=== PATIENT | male | born 1950 | race Caucasian/White ===

== ENCOUNTER 2023-11-20 14:28 | Inpatient (IN) | payer MEDICARE ==
[2023-11-20] MEDS ORDERED: Sodium Chloride 0.9% 1000 ML 1,000 ML ONE ×2 (14:56→18:46)
[2023-11-20] MEDS: Sodium Chloride 0.9% 1000 ML 1,000 ML IV STA ×2 (15:19→18:48)
[2023-11-20 15:40] LABS: Absolute Neutrophil Ct (ANC) 12.27 x10^3/uL (1.78-5.38); BASOPHIL % 0.1 % (0.2-1.2); Basophil (Absolute #) 0.02 x10^3/uL (0.01-0.08); Eosinophil (Absolute #) 0 x10^3/uL (0.04-0.54); Hematocrit 32.7 % (40.1-51.0); Hemoglobin 11.4 g/dL (13.7-17.5); IMMATURE GRAN # 0.08 x10^3u/L (0.001-0.031); IMMATURE GRAN % 0.6 % (0.001-0.429); Lymphocyte (Absolute #) 0.67 x10^3/uL (1.32-3.57); Mean Cell Volume 90.3 fL (79.0-92.2); Mean Corpuscular Hemoglobin 31.5 pg (25.7-32.2); Mean Corpuscular Hgb Concent. 34.9 g/dL (32.3-36.5); Mean Platelet Volume 9.2 fL (9.4-12.4); Monocyte (Absolute #) 0.49 x10^3/uL (0.30-0.82); Monocytes % 3.6 % (5.3-12.2); Neutrophil % 90.7 % (34.0-67.9); Platelet Count 157 x10^3/uL (163-337); Red Blood Count 3.62 x10^6/uL (4.63-6.08); Red Cell Distribution Width 13.2 % (11.6-14.4); White Blood Count 13.5 x10^3/uL (4.23-9.07)
[2023-11-20 15:53] LABS: ALBUMIN 3.7 g/dL (3.5-5.0); ANION GAP 17.3 MEQ/L (5-15); BILIRUBIN,TOTAL 0.6 mg/dL (0.2-1.3); Calcium 8.1 mg/dL (8.4-10.2); Creatinine 1 1.9 mg/dL (0.66-1.25); EST GLOMERULAR FILTRATION RATE 37.3 ML/MIN; Potassium 3.7 mmol/L (3.5-5.1); Total Protein 6.5 g/dL (6.3-8.2)
[2023-11-20 16:11] LABS: Group A Strep NOT DETECTED (NEGATIVE)
--- NOTE | 2023-11-20 16:13 | XRAY ---
[place] [facility] [place]. TECHNIQUE: CR Chest (1 view) AP view. FINDINGS: Cardiac shadow appears enlarged despite AP projection. Mild prominence of perihilar vascular markings probably due to mild pulmonary vascular congestion Sternotomy wire sutures and multiple surgical along the left side of the mediastinum. Trachea central. Cardiophrenic and costophrenic angles are acute. Retrocardiac and retrosternal air space is preserved. Degenerative changes are noted in the visualized thoracic spine and both glenohumeral joints. IMPRESSION: 1. Apparent cardiomegaly with mild pulmonary vascular congestion. Clinical correlation is suggested. 2. Sternotomy wire sutures and multiple surgical clips along the left side of the mediastinum. 3. No significant interval changes when compared with prior study. Electronically Signed by: Alessio Bush MD. (11/20/2023 16:09:29 EDT)
[2023-11-20 16:23] LABS: INFLUENZA A NEGATIVE (NEGATIVE); INFLUENZA B NEGATIVE (NEGATIVE); RESPIRATORY SYNCTIAL VIRUS NEGATIVE (NEGATIVE); SARS-CoV-2 Xpert Express NEGATIVE (NEGATIVE)
[2023-11-20] MEDS ORDERED: ROCEPHIN 2 GM/100 ML NACL 2 GM/100 ML IVPB IV ONE (16:57)
[2023-11-20] MEDS: ROCEPHIN 2 GM/100 ML NACL 2 GM/100 ML IVPB IV ONE (16:59)
--- NOTE | 2023-11-20 17:32 | ERPHSYRPT ---
- History of Present Illness Time Seen by Provider: 11/20/23 14:35 Source: patient, family Exam Limitations: no limitations Patient Subjective Stated Complaint: PT states "I was chilling last night and when I woke up I was dizzy and had a fever." Triage Nursing Assessment: PT presented alert and oriented X 3, skin pwd. Pt has hx of cerebral palsy. Pt resting comfortably on the bed. Physician History: 73-year-old with history of cerebral palsy, diabetes mellitus, hypertension, coronary artery disease status post CABG presented in the ER with complains of fever chills and dizziness. Patient reported he was having chills last night and this morning he woke up dizzy, lightheaded and had a fever of 104 prior to arrival, took Tylenol and currently afebrile. Patient reports generalized weakness fatigue and tiredness. Denies any chest pain palpitations or shortness of breath. No abdominal pain nausea or vomiting reported. Denies any headache, numbness tingling or focal weakness. Denies any known sick contact. Patient has chronic swelling of right lower extremity as compared to left from a previous femur fracture which is not any worse than usual. Has bilateral redness in the lower legs which is not any worse than usual as well. Patient is on room air around 96%. Allergies/Adverse Reactions: No Known Allergies Allergy (Mild, Verified 12/07/14 18:10) Home Medications: Atorvastatin Calcium 1 tab PO HS 11/20/23 [History] Buspirone HCl 15 mg PO TID 11/20/23 [History] Clopidogrel Bisulfate [Clopidogrel] 75 mg PO DAILY 11/20/23 [History] Cyanocobalamin (Vitamin B-12) [B-12] 1 tab PO DAILY 11/20/23 [History] Folic Acid 400 mcg PO DAILY 11/20/23 [History] Furosemide 40 mg [Lasix 40 MG] 40 mg PO DAILY 11/20/23 [History] Gabapentin [Neurontin ] 1 tab PO TID 11/20/23 [History] Glipizide 5 mg [Glucotrol 5 MG] 5 mg PO DAILY 11/20/23 [History] Isosorbide Mononitrate 30 mg [Imdur 30 MG] 1 tab PO DAILY 11/20/23 [History] Levothyroxine Sodium 50 Mcg [Synthroid 50 Mcg] 1 tab PO DAILY 11/20/23 [History] Metformin HCl [Metformin HCl ER] 750 mg PO BID 11/20/23 [History] Nitroglycerin 0.4 mg (Ed) [Nitrostat 0.4 MG (ED)] 1 tab SL Q5MIN PRN MR X 3 PRN 11/20/23 [History] Oxycodone HCl 5 mg Ir [Oxy-IR 5 MG] 5 mg PO Q4H PRN PRN 11/20/23 [History] PANTOPRAZOLE 40 mg Tablet [Protonix 40MG Tablet] 40 mg PO DAILY 11/20/23 [History] Phenytoin Sodium Extended 200 mg PO BID 11/20/23 [History] Potassium Chloride 1 tab PO BID 11/20/23 [History] Ramipril 1.25 mg [Altace 1.25 MG] 1 tab PO DAILY 11/20/23 [History] Tamsulosin HCl 0.4 mg [Flomax 0.4 MG] 0.4 mg PO DAILY 11/20/23 [History] calcitrioL [Calcitriol] 1 tab PO DAILY 11/20/23 [History] carvediloL [Carvedilol] 6.25 mg PO BID 11/20/23 [History] Hx Tetanus, Diphtheria Vaccination/Date Given: No Hx Influenza Vaccination/Date Given: Yes (2013) Hx Pneumococcal Vaccination/Date Given: Yes Immunizations Up to Date: No Travel Risk - International Travel Have you traveled outside of the country in past 3 weeks: No - Emerging Infectious Disease Are you exhibiting symptoms associated with any current EIDs: No - Review of Systems Constitutional: Fever, Chills, Fatigue, Weakness Eyes: No Symptoms Ears, Nose, & Throat: No Symptoms Respiratory: No Symptoms Cardiac: No Symptoms Abdominal/Gastrointestinal: No Symptoms Genitourinary Symptoms: No Symptoms Musculoskeletal: Arthralgias Skin: No Symptoms Neurological: Dizziness Psychological: No Symptoms Endocrine: No Symptoms Hematologic/Lymphatic: No Symptoms Immunological/Allergic: No Symptoms - Past Medical History Pertinent Past Medical History: Yes Neurological History: Peripheral Neuropathy, Seizures, Other Cardiac History: Myocardial Infarction ([place]) Respiratory History: No Pertinent History Endocrine Medical History: Diabetes Type II GI Medical History: GERD Other Medical History: CERBRAL PALSY - Past Surgical History Past Surgical History: Yes Cardiac: CABG, Cardiac Stent Gastrointestinal: Appendectomy Other Surgical History: SKIN GRAPHS - Social History Smoking Status: Never smoker Exposure to second hand smoke: Yes Drug Use: none Patient Lives Alone: No - Social Determinants of Health Will the patient participate in the screening: Declined to provide - Nursing Vital Signs Nursing Vital Signs: Initial Vital Signs Temperature 99.9 F 11/20/23 14:37 Pulse Rate 97 H 11/20/23 14:37 Respiratory Rate 18 11/20/23 14:37 Blood Pressure 128/70 11/20/23 14:37 O2 Sat by Pulse Oximetry 96 11/20/23 14:37 Pain Scale Pain Intensity 0 - Physical Exam General Appearance: no apparent distress, alert Eye Exam: PERRL/EOMI ENT Exam: normal ENT inspection Neck Exam: normal inspection, full range of motion Respiratory Exam: normal breath sounds, lungs clear Cardiovascular/Chest Exam: normal heart sounds, regular rate/rhythm Gastrointestinal/Abdominal Exam: soft, non tender, no distention, no mass Extremity Exam: non-tender Neurologic Exam: alert, oriented x 3, cooperative, executive administrator II-XII nml as tested, normal mood/affect, sensation nml Skin Exam: normal color SpO2 Interpretation: normal SpO2: 98 O2 Delivery: Room Air Procedures - Central Line Time Of Procedure: 19:34 Timeout: Performed Central Line Lumen: triple Lumen Size: 7 [place] Central Line Procedure: chlorahexadine prep Central Line Postion: femoral (R) Anesthesia: 1% Lidocaine cc's of anesthesia: 3 Ultrasound Guided Placement: Yes Complications: none Central Line Post Position: sutured, good blood return Progress: Patient tolerated procedure very well Ordered Tests: Active Orders 24 hr Category Date Time Status Bedrest ROUTINE Activity 11/20/23 19:58 Active Up With Assistance ROUTINE Activity 11/20/23 19:58 Active Call Admit Doctor for Orders ON ADMISSION Care 11/20/23 19:58 Active Code Status Order ROUTINE Care 11/20/23 19:58 Active Fall Protocol Q1H Care 11/20/23 19:58 Active POCT Glucose Check ACHS Care 11/20/23 19:[address] in Observation ROUTINE Care 11/20/23 19:58 Active Telemetry q6h Care 11/20/23 19:58 Active Consistent Carbohydrate Diet 1800 Calorie Diet 11/21/23 Breakfast Active CHEST 1 VIEW (PORTABLE) Stat Exams 11/20/23 15:09 Completed BLOOD CULTURE Stat Lab 11/20/23 15:24 Received BNPII [NT PRO BNPII] Stat Lab 11/20/23 Completed CBC W DIFF Stat Lab 11/20/23 15:34 Completed CMP Stat Lab 11/20/23 15:34 Completed Lactic Acid Stat Lab 11/20/23 14:53 Completed PROCALCITONIN Stat Lab 11/20/23 15:34 Completed UA W/RFX UR CULTURE Stat Lab 11/20/23 16:43 Completed Pulse Oximetry .spot check RT 11/20/23 19:58 Active Transfer Order Routine Transfer 11/20/23 Completed Medication Summary Generic Name Dose Route Start Last Admin Trade Name Freq PRN Reason Stop Dose Admin Acetaminophen 325 mg 11/20/23 23:10 Acetaminophen 325 Mg Tablet PO 12/20/23 23:09 Q4H PRN PRN PAIN, FEVER, HEADACHE Buspirone HCl 15 mg 11/21/23 10:00 Buspirone Hcl 5 Mg Tablet PO 12/21/23 09:59 TID RAYSHAWN Clopidogrel Bisulfate 75 mg 11/21/23 10:00 Clopidogrel Bisulfate 75 Mg Tablet PO 12/21/23 09:59 DAILY RAYSHAWN Docusate Sodium 100 mg 11/20/23 23:10 Docusate Sodium 100 Mg Capsule PO 12/20/23 23:09 BIDPRN PRN CONSTIPATION Enoxaparin Sodium 40 mg 11/21/23 10:00 Enoxaparin Sodium 40 Mg/0.4 Ml Syringe SQ 12/21/23 09:59 DAILY RAYSHAWN Gabapentin mg 11/21/23 10:00 Gabapentin 300 Mg Capsule PO 12/21/23 09:59 TID RAYSHAWN Glipizide 5 mg 11/21/23 10:00 Glipizide 5 Mg Tablet PO 12/21/23 09:59 DAILY RAYSHAWN Doxycycline Hyclate 100 mg/ 100 mls @ 100 mls/hr 11/20/23 22:00 11/20/23 17:40 Dextrose IV 12/20/23 21:59 100 mls/hr Q12HT RAYSHAWN Administration Sodium Chloride 1,000 mls @ 50 mls/hr 11/20/23 23:15 Sodium Chloride 0.9% 1000 Ml IV 12/20/23 23:14 .Q20H RAYSHAWN Ceftriaxone Sodium 1 gm in 100 mls @ 200 mls/hr 11/21/23 10:00 Rocephin 1 Gm / 100 Ml Nacl IV 12/21/23 09:59 Q24H10 RAYSHAWN Insulin Human Lispro 0 unit 11/20/23 23:10 Insulin Lispro 1 Unit SQ 12/20/23 23:09 UD PRN HYPERGLYCEMIA Levothyroxine Sodium mcg 11/21/23 10:00 Levothyroxine Sodium 50 Mcg Tablet PO 12/21/23 09:59 DAILY RAYSHAWN Non-Formulary Medication 1 tab 11/21/23 22:00 Atorvastatin Calcium [Atorvastatin Calcium] PO 12/21/23 21:59 HS RAYSHAWN Non-Formulary Medication 1 tab 11/21/23 10:00 Cyanocobalamin (Vitamin B-12) [B-12] PO 12/21/23 09:59 DAILY RAYSHAWN Non-Formulary Medication 1 tab 11/21/23 10:00 Calcitriol [Calcitriol] PO 12/21/23 09:59 DAILY RAYSHAWN Non-Formulary Medication 400 mcg 11/21/23 10:00 Folic Acid [Folic Acid] PO 12/21/23 09:59 DAILY RAYSHAWN Pantoprazole Sodium 40 mg 11/21/23 10:00 Protonix (Pantoprazole) 40 Mg Tablet PO 12/21/23 09:59 DAILY RAYSHAWN Phenytoin Sodium 300 mg 11/21/23 22:00 Phenytoin Sodium Extended 100 Mg Capsule PO 12/21/23 21:59 HS RAYSHAWN Discontinued Medications Generic Name Dose Route Start Last Admin Trade Name Freq PRN Reason Stop Dose Admin Doxycycline Hyclate Confirm 11/20/23 17:38 Doxycycline Hyclate 100 Mg/Vial Injection Administered 11/20/23 17:39 Dose 100 mg IV .STK-MED ONE Sodium Chloride 1,000 mls @ 999 mls/hr 11/20/23 14:53 11/20/23 16:23 Sodium Chloride 0.9% 1000 Ml IV 11/20/23 15:53 Infused .Q1H1M STA Infusion Sodium Chloride Confirm 11/20/23 14:56 Sodium Chloride 0.9% 1000 Ml Administered 11/20/23 14:57 Dose 1,000 mls @ ud .ROUTE .STK-MED ONE Ceftriaxone Sodium 2 gm in 100 mls @ 200 mls/hr 11/20/23 16:28 11/20/23 18:11 Rocephin 2 Gm/100 Ml Nacl IV 11/20/23 16:57 Infused STAT ONE Infusion Ceftriaxone Sodium Confirm 11/20/23 16:57 Rocephin 2 Gm/100 Ml Nacl Administered 11/20/23 16:58 Dose 2 gm in 100 mls @ ud IV .STK-MED ONE Dextrose Confirm 11/20/23 17:40 Dextrose 5%/Water Iv Soln. 100ml Plus Bag Administered 11/20/23 17:41 Dose 100 mls @ ud IV .STK-MED ONE Sodium Chloride Confirm 11/20/23 18:46 Sodium Chloride 0.9% 1000 Ml Administered 11/20/23 18:47 Dose 1,000 mls @ ud .ROUTE .STK-MED ONE Sodium Chloride 1,000 mls @ 999 mls/hr 11/20/23 18:47 11/20/23 20:07 Sodium Chloride 0.9% 1000 Ml IV 11/20/23 19:47 Infused .Q1H1M STA Infusion Lab/Rad Data: Laboratory Result Diagrams 11/20/23 15:34 11/20/23 15:34 Laboratory Results 11/20/23 11/20/23 11/20/23 Range/Units 16:43 15:34 15:34 WBC (4.23-9.07) x10^3/uL RBC (4.63-6.08) x10^6/uL Hgb (13.7-17.5) g/dL Hct (40.1-51.0) % MCV (79.0-92.2) fL MCH (25.7-32.2) pg MCHC (32.3-36.5) g/dL RDW (11.6-14.4) % Plt Count (163-337) x10^3/uL MPV (9.4-12.4) fL Gran % (34.0-67.9) % Immature Gran % (Auto) (0.001-0.429) % Nucleat RBC Rel Count (0.00-0.2) % Eos # (Auto) (0.04-0.54) x10^3/uL Immature Gran # (Auto) (0.001-0.031) x10^3u/L Absolute Lymphs (auto) (1.32-3.57) x10^3/uL Absolute Monos (auto) (0.30-0.82) x10^3/uL Absolute Nucleated RBC (0.00-0.012) x10^3u/L Lymphocytes % (21.8-53.1) % Monocytes % (5.3-12.2) % Eosinophils % (0.8-7.0) % Basophils % (0.2-1.2) % Absolute Granulocytes (1.78-5.38) x10^3/uL Basophils # (0.01-0.08) x10^3/uL Sodium 137 (135-145) mmol/L Potassium 3.7 (3.5-5.1) mmol/L Chloride 102 (98-107) mmol/L Carbon Dioxide 22 (22-30) mmol/L Anion Gap 17.3 H (5-15) MEQ/L BUN 29 H (9-20) mg/dL Creatinine 1.90 H (0.66-1.25) mg/dL Estimated GFR 37.3 ML/MIN Glucose 157 H (74-106) mg/dL Lactic Acid (0.4-2.0) Calcium 8.1 L (8.4-10.2) mg/dL Total Bilirubin 0.60 (0.2-1.3) mg/dL AST 38 (17-59) U/L ALT 40 (0-50) U/L Alkaline Phosphatase 122 (38-126) U/L Serum Total Protein 6.5 (6.3-8.2) g/dL Albumin 3.7 (3.5-5.0) g/dL Procalcitonin 21.800 H* (0.030-0.080) ng/mL Urine Color Dark Yellow (Yellow) Urine Appearance Clear (Clear) Urine pH 5.0 (4.6-8.0) Ur Specific [place] 1.020 (1.005-1.030) Urine Protein 30 (Negative) Urine Glucose (UA) Negative (Negative) mg/dL Urine Ketones Trace A (Negative) Urine Blood Negative (Negative) Urine Nitrite Negative (Negative) Urine Bilirubin Negative (Negative) Urine Urobilinogen 1.0 A (0.2) mg/dL Ur Leukocyte Esterase Negative (Negative) Urine Microscopic RBC 0-2 (0-5) /HPF Urine Microscopic WBC 0-2 (0-5) /HPF Ur Epithelial Cells Rare (None Seen) /HPF Urine Bacteria None Seen (None Seen) /HPF Urine Culture Reflexed NO (NO) Influenza Type A Ag (NEGATIVE) Influenza Type B Ag (NEGATIVE) RSV (PCR) (NEGATIVE) SARS-CoV-2 (PCR) (NEGATIVE) Group A Strep Antibody (NEGATIVE) 11/20/23 11/20/23 11/20/23 Range/Units 15:34 15:20 14:53 WBC 13.5 H (4.23-9.07) x10^3/uL RBC 3.62 L (4.63-6.08) x10^6/uL Hgb 11.4 L (13.7-17.5) g/dL Hct 32.7 L (40.1-51.0) % MCV 90.3 (79.0-92.2) fL MCH 31.5 (25.7-32.2) pg MCHC 34.9 (32.3-36.5) g/dL RDW 13.2 (11.6-14.4) % Plt Count 157 L (163-337) x10^3/uL MPV 9.2 L (9.4-12.4) fL Gran % 90.7 H (34.0-67.9) % Immature Gran % (Auto) 0.6 H (0.001-0.429) % Nucleat RBC Rel Count 0.0 (0.00-0.2) % Eos # (Auto) 0 L (0.04-0.54) x10^3/uL Immature Gran # (Auto) 0.08 H (0.001-0.031) x10^3u/L Absolute Lymphs (auto) 0.67 L (1.32-3.57) x10^3/uL Absolute Monos (auto) 0.49 (0.30-0.82) x10^3/uL Absolute Nucleated RBC 0.00 (0.00-0.012) x10^3u/L Lymphocytes % 5.0 L (21.8-53.1) % Monocytes % 3.6 L (5.3-12.2) % Eosinophils % 0.0 L (0.8-7.0) % Basophils % 0.1 L (0.2-1.2) % Absolute Granulocytes 12.27 H (1.78-5.38) x10^3/uL Basophils # 0.02 (0.01-0.08) x10^3/uL Sodium (135-145) mmol/L Potassium (3.5-5.1) mmol/L Chloride (98-107) mmol/L Carbon Dioxide (22-30) mmol/L Anion Gap (5-15) MEQ/L BUN (9-20) mg/dL Creatinine (0.66-1.25) mg/dL Estimated GFR ML/MIN Glucose (74-106) mg/dL Lactic Acid 4.2 H (0.4-2.0) Calcium (8.4-10.2) mg/dL Total Bilirubin (0.2-1.3) mg/dL AST (17-59) U/L ALT (0-50) U/L Alkaline Phosphatase (38-126) U/L Serum Total Protein (6.3-8.2) g/dL Albumin (3.5-5.0) g/dL Procalcitonin (0.030-0.080) ng/mL Urine Color (Yellow) Urine Appearance (Clear) Urine pH (4.6-8.0) Ur Specific [place] (1.005-1.030) Urine Protein (Negative) Urine Glucose (UA) (Negative) mg/dL Urine Ketones (Negative) Urine Blood (Negative) Urine Nitrite (Negative) Urine Bilirubin (Negative) Urine Urobilinogen (0.2) mg/dL Ur Leukocyte Esterase (Negative) Urine Microscopic RBC (0-5) /HPF Urine Microscopic WBC (0-5) /HPF Ur Epithelial Cells (None Seen) /HPF Urine Bacteria (None Seen) /HPF Urine Culture Reflexed (NO) Influenza Type A Ag NEGATIVE (NEGATIVE) Influenza Type B Ag NEGATIVE (NEGATIVE) RSV (PCR) NEGATIVE (NEGATIVE) SARS-CoV-2 (PCR) NEGATIVE (NEGATIVE) Group A Strep Antibody NOT DETECTED (NEGATIVE) - Progress Progress: improved Progress Note: 11/20/23 19:31 73-year-old with multiple medical problems including cerebral palsy with left side contracture/wasting in upper extremity, hypertension, diabetes mellitus, coronary artery disease with CABG, chronic lower extremity swelling more on the right than the left with some redness is evaluated for sudden onset fever and chills. Patient had a fever of 104 prior to arrival which improved after 1 dose of Tylenol. Patient is not tachypneic or tachycardic. Lungs fairly clear to auscultation. He is given fluids per sepsis protocol as patient has a lactate of 4.2 and procalcitonin of 21. Patient has history of CHF, his blood pressure is improved and we will hold off on fluid as it will throw into CHF as chest x- ray did show some finding consistent with mild pulmonary edema. Patient workup showed white count of 13, acute renal failure with a baseline creatinine of 1 and today is 1.9. No UTI. Blood cultures are pending. No obvious focus of infection. Patient is given a dose of Rocephin and Doxy. Patient is a hard stick, central line is placed. Current blood pressure [address] Steiner, reviewed history, workup and agreed with admission. Discussed with Dr.: Other (: Jatin) Will see patient in: hospital (observation) Counseled pt/family regarding: lab results, diagnosis, need for follow-up, rad results Medical Desision Making - Independent Historian Additional History obtained from: Family - Discussion of managment Care discussed with:: hospitalist Reviewed:: Test results Agreed on:: Treatment plan, place in obs Will see patient: in hospital - Diagnostic Testing Diagnostic test were ordered, analyzed, and reviewed by me: Yes Radiological Interpretation: Interpreted by me, Reviewed by me, Teleradiologist Report - Risk of complications The pt has a mod risk of morbidity or mortality based on: Need for prescription drug management The pt has a high risk of morbidity or mortality based on: Decision regarding hospitilization or escalation of hosp level of care - Departure Departure Disposition: Observation Clinical Impression: Sepsis, Febrile illness, acute Condition: Stable Critical Care Time: No
[2023-11-20] MEDS ORDERED: VIBRAMYCIN 100 MG IV ONE (17:38)
[2023-11-20] MEDS: VIBRAMYCIN 100 MG*** 100 MG in Dextrose 5%/Water IV Soln. 100ML PLUS BAG 100 ML IV SCH (17:40)
[2023-11-20] MEDS ORDERED: Dextrose 5%/Water IV Soln. 100ML PLUS BAG 100 ML IV ONE (17:40)
[2023-11-20 17:41] LABS: Appearance Clear (Clear); Bacteria None Seen /HPF (None Seen); Bilirubin Negative (Negative); Blood Negative (Negative); Epithelial Cells Rare /HPF (None Seen); Glucose, Urine Negative (Negative); Ketones Trace (Negative); Leukocyte Esterase Negative (Negative); Nitrite Negative (Negative); Protein,Urine Dip 30 (Negative); RBC 0-2 /HPF (0-5); WBC 0-2 /HPF (0-5)
[2023-11-20 17:50] LABS: ADD URINE CULTURE? NO (NO)
--- NOTE | 2023-11-20 23:06 | PCM.HP ---
History of Present Illness - Chief Complaint Chief Complaint: Sepsis, febrile illness Date: 11/20/23 History of Present Illness: Mr. PITTMAN is a 73 year old male with a past medical history significant for cerebral palsy, hypertension, and seizures who presents to the hospital with complaints of mild fever and chills. Upon arrival, he was found to have an elevated WBC with left shift. He does report some dizziness and lightheadness especially with movement. No chest pain or shortness of breath. No nausea, vomiting or diarrhea. No dysuria, hematuria or foamy urine. Initial labs were also notable for a creatinine of 1.9, which is above his baseline. No NSAIDs or exposure to contrast studies. - Review of Systems Constitutional: Fever, Chills Eyes: No Vision Changes Ears, Nose, & Throat: No Epistaxis Respiratory: No Orthopnea, No Short Of Breath Cardiac: No Chest Pain, No Edema Abdominal/Gastrointestinal: No Abdominal Pain, No Nausea, No Vomiting, No Diarrhea Genitourinary Symptoms: No Dysuria, No Frequency, No Hematuria Musculoskeletal: No Arthralgias, No Back Pain, No Neck Pain Skin: No Cellulitis, No Rash Neurological: Dizziness Psychological: No Suicidal Ideations Endocrine: No Polyuria, No Polydipsia, No Hair Changes Medications & Allergies Home Medications: Home Medication List Atorvastatin Calcium 1 tab PO HS 11/20/23 [History Confirmed 11/20/23] Buspirone HCl 15 mg PO TID 11/20/23 [History Confirmed 11/20/23] Clopidogrel Bisulfate [Clopidogrel] 75 mg PO DAILY 11/20/23 [History Confirmed 11/20/23] Cyanocobalamin (Vitamin B-12) [B-12] 1 tab PO DAILY 11/20/23 [History Confirmed 11/20/23] Folic Acid 400 mcg PO DAILY 11/20/23 [History Confirmed 11/20/23] Furosemide 40 mg [Lasix 40 MG] 40 mg PO DAILY 11/20/23 [History Confirmed 11/20/23] Gabapentin [Neurontin ] 1 tab PO TID 11/20/23 [History Confirmed 11/20/23] Glipizide 5 mg [Glucotrol 5 MG] 5 mg PO DAILY 11/20/23 [History Confirmed 11/20/23] Isosorbide Mononitrate 30 mg [Imdur 30 MG] 1 tab PO DAILY 11/20/23 [History Confirmed 11/20/23] Levothyroxine Sodium 50 Mcg [Synthroid 50 Mcg] 1 tab PO DAILY 11/20/23 [History Confirmed 11/20/23] Metformin HCl [Metformin HCl ER] 750 mg PO BID 11/20/23 [History Confirmed 11/20/23] Nitroglycerin 0.4 mg (Ed) [Nitrostat 0.4 MG (ED)] 1 tab SL Q5MIN PRN MR X 3 PRN 11/20/23 [History Confirmed 11/20/23] Oxycodone HCl 5 mg Ir [Oxy-IR 5 MG] 5 mg PO Q4H PRN PRN 11/20/23 [History Confirmed 11/20/23] PANTOPRAZOLE 40 mg Tablet [Protonix 40MG Tablet] 40 mg PO DAILY 11/20/23 [History Confirmed 11/20/23] Phenytoin Sodium Extended 200 mg PO BID 11/20/23 [History Confirmed 11/20/23] Potassium Chloride 1 tab PO BID 11/20/23 [History Confirmed 11/20/23] Ramipril 1.25 mg [Altace 1.25 MG] 1 tab PO DAILY 11/20/23 [History Confirmed 11/20/23] Tamsulosin HCl 0.4 mg [Flomax 0.4 MG] 0.4 mg PO DAILY 11/20/23 [History Confirmed 11/20/23] calcitrioL [Calcitriol] 1 tab PO DAILY 11/20/23 [History Confirmed 11/20/23] carvediloL [Carvedilol] 6.25 mg PO BID 11/20/23 [History Confirmed 11/20/23] Allergies/Adverse Reactions: Allergies Allergy/AdvReac Type Severity Reaction Status Date / Time No Known Allergies Allergy Mild Verified 12/07/14 18:10 - Past Medical History Past Medical History: Yes Neurological History: Peripheral Neuropathy, Seizures, Other ENT History: Glaucoma Cardiac History: Myocardial Infarction ([place]) Respiratory History: No Pertinent History Endocrine Medical History: Diabetes Type II Musculoskelatal History: Arthritis GI Medical History: GERD History: No Pertinent History Pyscho-Social History: No Pertinent History Male Reproductive Disorders: No Pertinent History Comment: CERBRAL PALSY - Past Surgical History Past Surgical History: Yes Neuro Surgical History: No Pertinent History Cardiac History: CABG, Cardiac Stent Respiratory Surgery: No Pertinent History GI Surgical History: Appendectomy Genitourinary Surgical Hx: No Pertinent History Musculskeletal Surgical Hx: No Pertinent History Male Surgical History: No Pertinent History Other Surgical History: SKIN GRAPHS - Social History Smoking Status: Never smoker Exposure to second hand smoke: No Alcohol: None Drug Use: none - Social Determinants of Health Will the patient participate in the screening: Declined to provide - Physical Exam Vital Signs: Vital Signs - 24 hr Temp Pulse Resp BP BP Pulse Ox 11/20/23 22:23 97 11/20/23 20:51 99.1 F 77 19 96/48 95 11/20/23 19:58 95 11/20/23 19:36 98 11/20/23 19:30 91 H 29 H 110/44 93 L 11/20/23 18:30 84/41 95 11/20/23 18:00 85 88/41 98 11/20/23 17:30 92/45 99 11/20/23 17:00 91/45 98 11/20/23 16:30 96/55 99 11/20/23 16:01 81/46 98 11/20/23 16:00 97 11/20/23 15:50 97 11/20/23 15:40 96 11/20/23 15:30 97 11/20/23 15:20 96 11/20/23 15:19 95 11/20/23 14:38 128/70 11/20/23 14:37 99.9 F 97 H 18 128/70 96 General Appearance: no apparent distress Neurologic Exam: alert, oriented x 3 Ears, Nose, Throat Exam: dry mucous membranes Neck Exam: supple Respiratory Exam: No respiratory distress Cardiovascular Exam: regular rate/rhythm Gastrointestinal/Abdomen Exam: soft Extremity Exam: pedal edema Skin Exam: normal color, No rash Results - Labs Lab/Micro Results: Lab Results-Last 24 Hours 11/20/23 11/20/23 11/20/23 Range/Units 14:53 15:20 15:34 WBC 13.5 H (4.23-9.07) x10^3/uL RBC 3.62 L (4.63-6.08) x10^6/uL Hgb 11.4 L (13.7-17.5) g/dL Hct 32.7 L (40.1-51.0) % MCV 90.3 (79.0-92.2) fL MCH 31.5 (25.7-32.2) pg MCHC 34.9 (32.3-36.5) g/dL RDW 13.2 (11.6-14.4) % Plt Count 157 L (163-337) x10^3/uL MPV 9.2 L (9.4-12.4) fL Gran % 90.7 H (34.0-67.9) % Immature Gran % (Auto) 0.6 H (0.001-0.429) % Nucleat RBC Rel Count 0.0 (0.00-0.2) % Eos # (Auto) 0 L (0.04-0.54) x10^3/uL Immature Gran # (Auto) 0.08 H (0.001-0.031) x10^3u/L Absolute Lymphs (auto) 0.67 L (1.32-3.57) x10^3/uL Absolute Monos (auto) 0.49 (0.30-0.82) x10^3/uL Absolute Nucleated RBC 0.00 (0.00-0.012) x10^3u/L Lymphocytes % 5.0 L (21.8-53.1) % Monocytes % 3.6 L (5.3-12.2) % Eosinophils % 0.0 L (0.8-7.0) % Basophils % 0.1 L (0.2-1.2) % Absolute Granulocytes 12.27 H (1.78-5.38) x10^3/uL Basophils # 0.02 (0.01-0.08) x10^3/uL Sodium (135-145) mmol/L Potassium (3.5-5.1) mmol/L Chloride (98-107) mmol/L Carbon Dioxide (22-30) mmol/L Anion Gap (5-15) MEQ/L BUN (9-20) mg/dL Creatinine (0.66-1.25) mg/dL Estimated GFR ML/MIN Glucose (74-106) mg/dL POC Glucometer (74 to 106) mg/dL Lactic Acid 4.2 H (0.4-2.0) Calcium (8.4-10.2) mg/dL Total Bilirubin (0.2-1.3) mg/dL AST (17-59) U/L ALT (0-50) U/L Alkaline Phosphatase (38-126) U/L NT-Pro-B Natriuret Pep (<300) pg/mL Serum Total Protein (6.3-8.2) g/dL Albumin (3.5-5.0) g/dL Procalcitonin (0.030-0.080) ng/mL Urine Color (Yellow) Urine Appearance (Clear) Urine pH (4.6-8.0) Ur Specific [place] (1.005-1.030) Urine Protein (Negative) Urine Glucose (UA) (Negative) mg/dL Urine Ketones (Negative) Urine Blood (Negative) Urine Nitrite (Negative) Urine Bilirubin (Negative) Urine Urobilinogen (0.2) mg/dL Ur Leukocyte Esterase (Negative) Urine Microscopic RBC (0-5) /HPF Urine Microscopic WBC (0-5) /HPF Ur Epithelial Cells (None Seen) /HPF Urine Bacteria (None Seen) /HPF Urine Culture Reflexed (NO) Influenza Type A Ag NEGATIVE (NEGATIVE) Influenza Type B Ag NEGATIVE (NEGATIVE) RSV (PCR) NEGATIVE (NEGATIVE) SARS-CoV-2 (PCR) NEGATIVE (NEGATIVE) Group A Strep Antibody NOT DETECTED (NEGATIVE) 11/20/23 11/20/23 11/20/23 Range/Units 15:34 15:34 16:43 WBC (4.23-9.07) x10^3/uL RBC (4.63-6.08) x10^6/uL Hgb (13.7-17.5) g/dL Hct (40.1-51.0) % MCV (79.0-92.2) fL MCH (25.7-32.2) pg MCHC (32.3-36.5) g/dL RDW (11.6-14.4) % Plt Count (163-337) x10^3/uL MPV (9.4-12.4) fL Gran % (34.0-67.9) % Immature Gran % (Auto) (0.001-0.429) % Nucleat RBC Rel Count (0.00-0.2) % Eos # (Auto) (0.04-0.54) x10^3/uL Immature Gran # (Auto) (0.001-0.031) x10^3u/L Absolute Lymphs (auto) (1.32-3.57) x10^3/uL Absolute Monos (auto) (0.30-0.82) x10^3/uL Absolute Nucleated RBC (0.00-0.012) x10^3u/L Lymphocytes % (21.8-53.1) % Monocytes % (5.3-12.2) % Eosinophils % (0.8-7.0) % Basophils % (0.2-1.2) % Absolute Granulocytes (1.78-5.38) x10^3/uL Basophils # (0.01-0.08) x10^3/uL Sodium 137 (135-145) mmol/L Potassium 3.7 (3.5-5.1) mmol/L Chloride 102 (98-107) mmol/L Carbon Dioxide 22 (22-30) mmol/L Anion Gap 17.3 H (5-15) MEQ/L BUN 29 H (9-20) mg/dL Creatinine 1.90 H (0.66-1.25) mg/dL Estimated GFR 37.3 ML/MIN Glucose 157 H (74-106) mg/dL POC Glucometer (74 to 106) mg/dL Lactic Acid (0.4-2.0) Calcium 8.1 L (8.4-10.2) mg/dL Total Bilirubin 0.60 (0.2-1.3) mg/dL AST 38 (17-59) U/L ALT 40 (0-50) U/L Alkaline Phosphatase 122 (38-126) U/L NT-Pro-B Natriuret Pep (<300) pg/mL Serum Total Protein 6.5 (6.3-8.2) g/dL Albumin 3.7 (3.5-5.0) g/dL Procalcitonin 21.800 H* (0.030-0.080) ng/mL Urine Color Dark Yellow (Yellow) Urine Appearance Clear (Clear) Urine pH 5.0 (4.6-8.0) Ur Specific [place] 1.020 (1.005-1.030) Urine Protein 30 (Negative) Urine Glucose (UA) Negative (Negative) mg/dL Urine Ketones Trace A (Negative) Urine Blood Negative (Negative) Urine Nitrite Negative (Negative) Urine Bilirubin Negative (Negative) Urine Urobilinogen 1.0 A (0.2) mg/dL Ur Leukocyte Esterase Negative (Negative) Urine Microscopic RBC 0-2 (0-5) /HPF Urine Microscopic WBC 0-2 (0-5) /HPF Ur Epithelial Cells Rare (None Seen) /HPF Urine Bacteria None Seen (None Seen) /HPF Urine Culture Reflexed NO (NO) Influenza Type A Ag (NEGATIVE) Influenza Type B Ag (NEGATIVE) RSV (PCR) (NEGATIVE) SARS-CoV-2 (PCR) (NEGATIVE) Group A Strep Antibody (NEGATIVE) 11/20/23 11/20/23 11/20/23 Range/Units 20:14 22:00 Unknown WBC (4.23-9.07) x10^3/uL RBC (4.63-6.08) x10^6/uL Hgb (13.7-17.5) g/dL Hct (40.1-51.0) % MCV (79.0-92.2) fL MCH (25.7-32.2) pg MCHC (32.3-36.5) g/dL RDW (11.6-14.4) % Plt Count (163-337) x10^3/uL MPV (9.4-12.4) fL Gran % (34.0-67.9) % Immature Gran % (Auto) (0.001-0.429) % Nucleat RBC Rel Count (0.00-0.2) % Eos # (Auto) (0.04-0.54) x10^3/uL Immature Gran # (Auto) (0.001-0.031) x10^3u/L Absolute Lymphs (auto) (1.32-3.57) x10^3/uL Absolute Monos (auto) (0.30-0.82) x10^3/uL Absolute Nucleated RBC (0.00-0.012) x10^3u/L Lymphocytes % (21.8-53.1) % Monocytes % (5.3-12.2) % Eosinophils % (0.8-7.0) % Basophils % (0.2-1.2) % Absolute Granulocytes (1.78-5.38) x10^3/uL Basophils # (0.01-0.08) x10^3/uL Sodium (135-145) mmol/L Potassium (3.5-5.1) mmol/L Chloride (98-107) mmol/L Carbon Dioxide (22-30) mmol/L Anion Gap (5-15) MEQ/L BUN (9-20) mg/dL Creatinine (0.66-1.25) mg/dL Estimated GFR ML/MIN Glucose (74-106) mg/dL POC Glucometer 156 H (74 to 106) mg/dL Lactic Acid 2.1 H (0.4-2.0) Calcium (8.4-10.2) mg/dL Total Bilirubin (0.2-1.3) mg/dL AST (17-59) U/L ALT (0-50) U/L Alkaline Phosphatase (38-126) U/L NT-Pro-B Natriuret Pep 3130 (<300) pg/mL Serum Total Protein (6.3-8.2) g/dL Albumin (3.5-5.0) g/dL Procalcitonin (0.030-0.080) ng/mL Urine Color (Yellow) Urine Appearance (Clear) Urine pH (4.6-8.0) Ur Specific [place] (1.005-1.030) Urine Protein (Negative) Urine Glucose (UA) (Negative) mg/dL Urine Ketones (Negative) Urine Blood (Negative) Urine Nitrite (Negative) Urine Bilirubin (Negative) Urine Urobilinogen (0.2) mg/dL Ur Leukocyte Esterase (Negative) Urine Microscopic RBC (0-5) /HPF Urine Microscopic WBC (0-5) /HPF Ur Epithelial Cells (None Seen) /HPF Urine Bacteria (None Seen) /HPF Urine Culture Reflexed (NO) Influenza Type A Ag (NEGATIVE) Influenza Type B Ag (NEGATIVE) RSV (PCR) (NEGATIVE) SARS-CoV-2 (PCR) (NEGATIVE) Group A Strep Antibody (NEGATIVE) Accuchecks Date 11/20/23 Time 22:00 - Radiology Impressions Radiology Exams & Impressions: Radiology Procedures Category Date Time Status CHEST 1 VIEW (PORTABLE) Stat Exams 11/20/23 15:09 Completed - Other Procedures and Tests Respiratory Therapy 11/20/23 20:52 BiPap/CPAP ROUTINE Assessment/Plan (1) Febrile illness, acute Current Visit: Yes Status: Acute Assessment & Plan: Etiology unclear with normal CXR/U/A but with leukocytosis and left shift 1. Admit to hospital 2. Trend WBC 3. Empiric antibiotics 4. Follow cultures Code(s): R50.9 - FEVER, UNSPECIFIED (2) Acute kidney injury Current Visit: Yes Status: Acute Assessment & Plan: Likely from prerenal azotemia in setting of infection 1. Trial of IVFs 2. Check urine lytes, urine creatinine 3. Hold diuretics 4. Follow I/Os 5. Watch electrolytes, creatinine closely Code(s): N17.9 - ACUTE KIDNEY FAILURE, UNSPECIFIED (3) Dizziness Current Visit: Yes Status: Acute Assessment & Plan: Likely from hypotension/dehydration 1. IVFs 2. Trial of Midodrine 3. Check orthostatics Code(s): R42 - DIZZINESS AND GIDDINESS (4) Type 2 diabetes mellitus with ketoacidosis without coma Current Visit: Yes Status: Acute Assessment & Plan: Elevated blood sugars with urinary ketones 1. IVFs 2. FSBS qAC/HS 3. SSI Code(s): E11.10 - TYPE 2 DIABETES MELLITUS WITH KETOACIDOSIS WITHOUT COMA (5) Cerebral palsy Current Visit: Yes Status: Acute Code(s): G80.9 - CEREBRAL PALSY, UNSPECIFIED Telemedicine Encounter - Telemedicine Encounter Telemedicine Encounter: "The entirety of this encounter was performed via Telemedicine" This visit was performed using real-time audio and video connection between my location and thepatients locationwith the assistance of a surrogateat the patients location. Written or verbal consent was obtained from the patient/guardian to perform this visit using[facility] technology. Any patient questions regarding the telemedicine interaction were answered.
[2023-11-20] MEDS ORDERED: Docusate Sodium 100 MG PO PRN (23:10)
[2023-11-21] MEDS: Sodium Chloride 0.9% 1000 ML 1,000 ML IV SCH (01:00)
[2023-11-21] MEDS: BUSPAR 5 MG PO SCH (01:09)
[2023-11-21 05:14] LABS: Absolute Neutrophil Ct (ANC) 11.23 x10^3/uL (1.78-5.38); BASOPHIL % 0.2 % (0.2-1.2); Basophil (Absolute #) 0.03 x10^3/uL (0.01-0.08); Eosinophil (Absolute #) 0 x10^3/uL (0.04-0.54); Hematocrit 30.5 % (40.1-51.0); Hemoglobin 10.5 g/dL (13.7-17.5); IMMATURE GRAN # 0.08 x10^3u/L (0.001-0.031); IMMATURE GRAN % 0.7 % (0.001-0.429); Lymphocyte (Absolute #) 0.62 x10^3/uL (1.32-3.57); Mean Cell Volume 90.5 fL (79.0-92.2); Mean Corpuscular Hemoglobin 31.2 pg (25.7-32.2); Mean Corpuscular Hgb Concent. 34.4 g/dL (32.3-36.5); Mean Platelet Volume 9.7 fL (9.4-12.4); Monocyte (Absolute #) 0.32 x10^3/uL (0.30-0.82); Monocytes % 2.6 % (5.3-12.2); Neutrophil % 91.5 % (34.0-67.9); Platelet Count 122 x10^3/uL (163-337); Red Blood Count 3.37 x10^6/uL (4.63-6.08); Red Cell Distribution Width 13.8 % (11.6-14.4); White Blood Count 12.3 x10^3/uL (4.23-9.07)
[2023-11-21 05:30] LABS: ALBUMIN 2.9 g/dL (3.5-5.0); ANION GAP 14.5 MEQ/L (5-15); BILIRUBIN,TOTAL 0.5 mg/dL (0.2-1.3); Creatinine 1 1.78 mg/dL (0.66-1.25); EST GLOMERULAR FILTRATION RATE 40.3 ML/MIN; Potassium 3.8 mmol/L (3.5-5.1); Total Protein 5.3 g/dL (6.3-8.2)
[2023-11-21] MEDS: PROAMATINE PO SCH ×2 (06:13→09:58)
[2023-11-21] MEDS: PHARMACY DOSING REQUEST MC ONE (07:21)
[2023-11-21] MEDS: PIPERACILLIN/TAZOBACTAM 3.375 GM in Sodium Chloride 100ML MINI-BAG PLUS 100 ML IV SCH (09:23)
[2023-11-21] MEDS: Protonix 40MG Tablet PO SCH (09:41)
[2023-11-21] MEDS: FOLATE 1 MG PO SCH (09:41)
[2023-11-21] MEDS: Vitamin B-12 500 MCG PO SCH (09:41)
[2023-11-21] MEDS: NEURONTIN PO SCH (09:41)
[2023-11-21] MEDS: PLAVIX Tablet PO SCH (09:42)
[2023-11-21] MEDS: Glucotrol 5 MG PO SCH (09:42)
[2023-11-21] MEDS: SYNTHROID 50 MCG PO SCH (09:42)
[2023-11-21] MEDS: ENOXAPARIN SODIUM SQ SCH (09:43)
[2023-11-21] MEDS: VANCOMYCIN 2 GRAM/400 ML BAG 2 GM/400 ML PIGGYBACK IV SCH (09:58)
[2023-11-21] MEDS: TYLENOL 325 MG PO PRN (09:58)
[2023-11-21] MEDS ORDERED: NON-FORMULARY ITEM (Folic Acid [Folic Acid] 0.4 MG Tablet) PO SCH (10:00)
[2023-11-21] MEDS ORDERED: PROAMATINE PO SCH (10:00)
[2023-11-21] MEDS ORDERED: NON-FORMULARY ITEM (Cyanocobalamin (Vitamin B-12) [B-12] 1,000 MCG Tablet) PO SCH (10:00)
[2023-11-21] MEDS ORDERED: NON-FORMULARY ITEM (Calcitriol [Calcitriol] 0.5 MCG Capsule) PO SCH (10:00)
[2023-11-21] MEDS ORDERED: ROCEPHIN 1 GM / 100 ML NaCl 1 GM/100 ML IVPB IV SCH (10:00)
--- NOTE | 2023-11-21 12:45 | XRAY ---
Indication: 1st toe swelling/open wound. Comparison: None 3 nonweightbearing views of right foot demonstrates osteopenia, mild 1st MTP degenerative changes, spurring posterior/plantar calcaneus, spurring base 5th metatarsal, and extensive scattered vascular calcifications. No other bony, articular, or soft tissue abnormalities.
--- NOTE | 2023-11-21 13:10 | PCM.NOTE ---
Date and Time: 11/21/23 8112 Subjective Assessment: Mr. Dennis is a 73 year old male with a pmhx of cerebral palsy, peripheral neuropathy, seizures, CAD (s/p CABG), FL, DM, and GERD admitted 11/20/23 with sepsis of unknown etiology after experiencing about a week history of fever, chills, body aches, and dizziness. TMax of 104. CXR negative for acute findings. Lab findings remarkable for leukocytosis, KUMAR with creat at 1.9 on arrival (baseline 1.0), procal at 21.800,and elevated lactic at 2.1. Urinalysis and respiratory viral panel negative. Upon exam, patient noted with BLE edema/erythema as well as what appears to be a chronic wound on his right great toe. Patient was started on Ceftriaxone/doxy - will continue with vanc/zosyn. Will attempt to obtain cultures, venous doppler to BLE, and Echo. Xray of right foot negative for acute findings. Patient states he is feeling better overall today, still some dizziness. Has remained afebrile overnight. Kidney function improving. WBC improving. Denies fever,cough, sob, cp, abdominal pain, DANG, N/V/D. - Review of Systems Constitutional: Fatigue, Weakness Eyes: No Symptoms Ears, Nose, & Throat: No Symptoms Respiratory: No Symptoms Cardiac: No Symptoms Abdominal/Gastrointestinal: No Symptoms Genitourinary Symptoms: No Symptoms Musculoskeletal: No Symptoms Skin: Cellulitis (LLE) Neurological: No Symptoms Psychological: No Symptoms Endocrine: No Symptoms Hematologic/Lymphatic: No Symptoms Immunological/Allergic: No Symptoms Objective Exam General Appearance: no apparent distress Neurologic Exam: alert, oriented x 3, cooperative Skin Exam: other (BLE edema +2 -R +3 L pitting LLE with erythema) Eye Exam: PERRL Ears, Nose, Throat Exam: normal ENT inspection Neck Exam: normal inspection Respiratory Exam: normal breath sounds, lungs clear Cardiovascular Exam: regular rate/rhythm, normal heart sounds Gastrointestinal/Abdomen Exam: soft, normal bowel sounds Extremity Exam: other (see skin) Back Exam: normal inspection Male Genitalia Exam: deferred Rectal Exam: deferred Objective Data Vital Signs: Vital Signs - 24 hr Temp Pulse Resp BP BP Pulse Ox 11/21/23 09:54 101.1 F 11/21/23 08:00 99.6 F 90 18 122/76 95 11/21/23 07:15 95 11/21/23 04:00 98.2 F 91 H 20 143/55 94 L 11/20/23 23:53 98.2 F 78 20 84/45 97 11/20/23 23:26 98 11/20/23 22:23 97 11/20/23 20:51 99.1 F 77 19 96/48 95 11/20/23 19:58 95 11/20/23 19:30 91 H 29 H 110/44 93 L 11/20/23 18:30 84/41 95 11/20/23 18:00 85 88/41 98 11/20/23 17:30 92/45 99 11/20/23 17:00 91/45 98 11/20/23 16:30 96/55 99 11/20/23 16:01 81/46 98 11/20/23 16:00 97 11/20/23 15:50 97 11/20/23 15:40 96 11/20/23 15:30 97 11/20/23 15:20 96 11/20/23 15:19 95 11/20/23 14:38 128/70 11/20/23 14:37 99.9 F 97 H 18 128/70 96 Pain Assessment - Last Documented Pain Intensity 0 Intake and Output: Intake & Output 11/19/23 11/20/23 11/21/23 11/22/23 11:59 11:59 11:59 11:59 Intake Total 1686 Balance 1686 Weight 111.9 kg Lab Results: Lab Results-Last 24 Hours 11/20/23 11/20/23 11/20/23 Range/Units 14:53 15:20 15:34 WBC 13.5 H (4.23-9.07) x10^3/uL RBC 3.62 L (4.63-6.08) x10^6/uL Hgb 11.4 L (13.7-17.5) g/dL Hct 32.7 L (40.1-51.0) % MCV 90.3 (79.0-92.2) fL MCH 31.5 (25.7-32.2) pg MCHC 34.9 (32.3-36.5) g/dL RDW 13.2 (11.6-14.4) % Plt Count 157 L (163-337) x10^3/uL MPV 9.2 L (9.4-12.4) fL Gran % 90.7 H (34.0-67.9) % Immature Gran % (Auto) 0.6 H (0.001-0.429) % Nucleat RBC Rel Count 0.0 (0.00-0.2) % Eos # (Auto) 0 L (0.04-0.54) x10^3/uL Immature Gran # (Auto) 0.08 H (0.001-0.031) x10^3u/L Absolute Lymphs (auto) 0.67 L (1.32-3.57) x10^3/uL Absolute Monos (auto) 0.49 (0.30-0.82) x10^3/uL Absolute Nucleated RBC 0.00 (0.00-0.012) x10^3u/L Lymphocytes % 5.0 L (21.8-53.1) % Monocytes % 3.6 L (5.3-12.2) % Eosinophils % 0.0 L (0.8-7.0) % Basophils % 0.1 L (0.2-1.2) % Absolute Granulocytes 12.27 H (1.78-5.38) x10^3/uL Basophils # 0.02 (0.01-0.08) x10^3/uL Sodium (135-145) mmol/L Potassium (3.5-5.1) mmol/L Chloride (98-107) mmol/L Carbon Dioxide (22-30) mmol/L Anion Gap (5-15) MEQ/L BUN (9-20) mg/dL Creatinine (0.66-1.25) mg/dL Estimated GFR ML/MIN Glucose (74-106) mg/dL POC Glucometer (74 to 106) mg/dL Lactic Acid 4.2 H (0.4-2.0) Calcium (8.4-10.2) mg/dL Total Bilirubin (0.2-1.3) mg/dL AST (17-59) U/L ALT (0-50) U/L Alkaline Phosphatase (38-126) U/L NT-Pro-B Natriuret Pep (<300) pg/mL Serum Total Protein (6.3-8.2) g/dL Albumin (3.5-5.0) g/dL Procalcitonin (0.030-0.080) ng/mL Urine Color (Yellow) Urine Appearance (Clear) Urine pH (4.6-8.0) Ur Specific Millen (1.005-1.030) Urine Protein (Negative) Urine Glucose (UA) (Negative) mg/dL Urine Ketones (Negative) Urine Blood (Negative) Urine Nitrite (Negative) Urine Bilirubin (Negative) Urine Urobilinogen (0.2) mg/dL Ur Leukocyte Esterase (Negative) Urine Microscopic RBC (0-5) /HPF Urine Microscopic WBC (0-5) /HPF Ur Epithelial Cells (None Seen) /HPF Urine Bacteria (None Seen) /HPF Urine Culture Reflexed (NO) Influenza Type A Ag NEGATIVE (NEGATIVE) Influenza Type B Ag NEGATIVE (NEGATIVE) RSV (PCR) NEGATIVE (NEGATIVE) SARS-CoV-2 (PCR) NEGATIVE (NEGATIVE) Group A Strep Antibody NOT DETECTED (NEGATIVE) 11/20/23 11/20/23 11/20/23 Range/Units 15:34 15:34 16:43 WBC (4.23-9.07) x10^3/uL RBC (4.63-6.08) x10^6/uL Hgb (13.7-17.5) g/dL Hct (40.1-51.0) % MCV (79.0-92.2) fL MCH (25.7-32.2) pg MCHC (32.3-36.5) g/dL RDW (11.6-14.4) % Plt Count (163-337) x10^3/uL MPV (9.4-12.4) fL Gran % (34.0-67.9) % Immature Gran % (Auto) (0.001-0.429) % Nucleat RBC Rel Count (0.00-0.2) % Eos # (Auto) (0.04-0.54) x10^3/uL Immature Gran # (Auto) (0.001-0.031) x10^3u/L Absolute Lymphs (auto) (1.32-3.57) x10^3/uL Absolute Monos (auto) (0.30-0.82) x10^3/uL Absolute Nucleated RBC (0.00-0.012) x10^3u/L Lymphocytes % (21.8-53.1) % Monocytes % (5.3-12.2) % Eosinophils % (0.8-7.0) % Basophils % (0.2-1.2) % Absolute Granulocytes (1.78-5.38) x10^3/uL Basophils # (0.01-0.08) x10^3/uL Sodium 137 (135-145) mmol/L Potassium 3.7 (3.5-5.1) mmol/L Chloride 102 (98-107) mmol/L Carbon Dioxide 22 (22-30) mmol/L Anion Gap 17.3 H (5-15) MEQ/L BUN 29 H (9-20) mg/dL Creatinine 1.90 H (0.66-1.25) mg/dL Estimated GFR 37.3 ML/MIN Glucose 157 H (74-106) mg/dL POC Glucometer (74 to 106) mg/dL Lactic Acid (0.4-2.0) Calcium 8.1 L (8.4-10.2) mg/dL Total Bilirubin 0.60 (0.2-1.3) mg/dL AST 38 (17-59) U/L ALT 40 (0-50) U/L Alkaline Phosphatase 122 (38-126) U/L NT-Pro-B Natriuret Pep (<300) pg/mL Serum Total Protein 6.5 (6.3-8.2) g/dL Albumin 3.7 (3.5-5.0) g/dL Procalcitonin 21.800 H* (0.030-0.080) ng/mL Urine Color Dark Yellow (Yellow) Urine Appearance Clear (Clear) Urine pH 5.0 (4.6-8.0) Ur Specific Millen 1.020 (1.005-1.030) Urine Protein 30 (Negative) Urine Glucose (UA) Negative (Negative) mg/dL Urine Ketones Trace A (Negative) Urine Blood Negative (Negative) Urine Nitrite Negative (Negative) Urine Bilirubin Negative (Negative) Urine Urobilinogen 1.0 A (0.2) mg/dL Ur Leukocyte Esterase Negative (Negative) Urine Microscopic RBC 0-2 (0-5) /HPF Urine Microscopic WBC 0-2 (0-5) /HPF Ur Epithelial Cells Rare (None Seen) /HPF Urine Bacteria None Seen (None Seen) /HPF Urine Culture Reflexed NO (NO) Influenza Type A Ag (NEGATIVE) Influenza Type B Ag (NEGATIVE) RSV (PCR) (NEGATIVE) SARS-CoV-2 (PCR) (NEGATIVE) Group A Strep Antibody (NEGATIVE) 11/20/23 11/20/23 11/20/23 Range/Units 20:14 22:00 Unknown WBC (4.23-9.07) x10^3/uL RBC (4.63-6.08) x10^6/uL Hgb (13.7-17.5) g/dL Hct (40.1-51.0) % MCV (79.0-92.2) fL MCH (25.7-32.2) pg MCHC (32.3-36.5) g/dL RDW (11.6-14.4) % Plt Count (163-337) x10^3/uL MPV (9.4-12.4) fL Gran % (34.0-67.9) % Immature Gran % (Auto) (0.001-0.429) % Nucleat RBC Rel Count (0.00-0.2) % Eos # (Auto) (0.04-0.54) x10^3/uL Immature Gran # (Auto) (0.001-0.031) x10^3u/L Absolute Lymphs (auto) (1.32-3.57) x10^3/uL Absolute Monos (auto) (0.30-0.82) x10^3/uL Absolute Nucleated RBC (0.00-0.012) x10^3u/L Lymphocytes % (21.8-53.1) % Monocytes % (5.3-12.2) % Eosinophils % (0.8-7.0) % Basophils % (0.2-1.2) % Absolute Granulocytes (1.78-5.38) x10^3/uL Basophils # (0.01-0.08) x10^3/uL Sodium (135-145) mmol/L Potassium (3.5-5.1) mmol/L Chloride (98-107) mmol/L Carbon Dioxide (22-30) mmol/L Anion Gap (5-15) MEQ/L BUN (9-20) mg/dL Creatinine (0.66-1.25) mg/dL Estimated GFR ML/MIN Glucose (74-106) mg/dL POC Glucometer 156 H (74 to 106) mg/dL Lactic Acid 2.1 H (0.4-2.0) Calcium (8.4-10.2) mg/dL Total Bilirubin (0.2-1.3) mg/dL AST (17-59) U/L ALT (0-50) U/L Alkaline Phosphatase (38-126) U/L NT-Pro-B Natriuret Pep 3130 (<300) pg/mL Serum Total Protein (6.3-8.2) g/dL Albumin (3.5-5.0) g/dL Procalcitonin (0.030-0.080) ng/mL Urine Color (Yellow) Urine Appearance (Clear) Urine pH (4.6-8.0) Ur Specific Millen (1.005-1.030) Urine Protein (Negative) Urine Glucose (UA) (Negative) mg/dL Urine Ketones (Negative) Urine Blood (Negative) Urine Nitrite (Negative) Urine Bilirubin (Negative) Urine Urobilinogen (0.2) mg/dL Ur Leukocyte Esterase (Negative) Urine Microscopic RBC (0-5) /HPF Urine Microscopic WBC (0-5) /HPF Ur Epithelial Cells (None Seen) /HPF Urine Bacteria (None Seen) /HPF Urine Culture Reflexed (NO) Influenza Type A Ag (NEGATIVE) Influenza Type B Ag (NEGATIVE) RSV (PCR) (NEGATIVE) SARS-CoV-2 (PCR) (NEGATIVE) Group A Strep Antibody (NEGATIVE) 11/21/23 11/21/23 11/21/23 Range/Units 04:42 04:42 07:01 WBC 12.3 H (4.23-9.07) x10^3/uL RBC 3.37 L (4.63-6.08) x10^6/uL Hgb 10.5 L (13.7-17.5) g/dL Hct 30.5 L (40.1-51.0) % MCV 90.5 (79.0-92.2) fL MCH 31.2 (25.7-32.2) pg MCHC 34.4 (32.3-36.5) g/dL RDW 13.8 (11.6-14.4) % Plt Count 122 L (163-337) x10^3/uL MPV 9.7 (9.4-12.4) fL Gran % 91.5 H (34.0-67.9) % Immature Gran % (Auto) 0.7 H (0.001-0.429) % Nucleat RBC Rel Count 0.0 (0.00-0.2) % Eos # (Auto) 0 L (0.04-0.54) x10^3/uL Immature Gran # (Auto) 0.08 H (0.001-0.031) x10^3u/L Absolute Lymphs (auto) 0.62 L (1.32-3.57) x10^3/uL Absolute Monos (auto) 0.32 (0.30-0.82) x10^3/uL Absolute Nucleated RBC 0.00 (0.00-0.012) x10^3u/L Lymphocytes % 5.0 L (21.8-53.1) % Monocytes % 2.6 L (5.3-12.2) % Eosinophils % 0.0 L (0.8-7.0) % Basophils % 0.2 (0.2-1.2) % Absolute Granulocytes 11.23 H (1.78-5.38) x10^3/uL Basophils # 0.03 (0.01-0.08) x10^3/uL Sodium 136 (135-145) mmol/L Potassium 3.8 (3.5-5.1) mmol/L Chloride 103 (98-107) mmol/L Carbon Dioxide 22 (22-30) mmol/L Anion Gap 14.5 (5-15) MEQ/L BUN 37 H (9-20) mg/dL Creatinine 1.78 H (0.66-1.25) mg/dL Estimated GFR 40.3 ML/MIN Glucose 162 H (74-106) mg/dL POC Glucometer 158 H (74 to 106) mg/dL Lactic Acid (0.4-2.0) Calcium 7.0 L (8.4-10.2) mg/dL Total Bilirubin 0.50 (0.2-1.3) mg/dL AST 33 (17-59) U/L ALT 25 (0-50) U/L Alkaline Phosphatase 116 (38-126) U/L NT-Pro-B Natriuret Pep (<300) pg/mL Serum Total Protein 5.3 L (6.3-8.2) g/dL Albumin 2.9 L (3.5-5.0) g/dL Procalcitonin (0.030-0.080) ng/mL Urine Color (Yellow) Urine Appearance (Clear) Urine pH (4.6-8.0) Ur Specific Millen (1.005-1.030) Urine Protein (Negative) Urine Glucose (UA) (Negative) mg/dL Urine Ketones (Negative) Urine Blood (Negative) Urine Nitrite (Negative) Urine Bilirubin (Negative) Urine Urobilinogen (0.2) mg/dL Ur Leukocyte Esterase (Negative) Urine Microscopic RBC (0-5) /HPF Urine Microscopic WBC (0-5) /HPF Ur Epithelial Cells (None Seen) /HPF Urine Bacteria (None Seen) /HPF Urine Culture Reflexed (NO) Influenza Type A Ag (NEGATIVE) Influenza Type B Ag (NEGATIVE) RSV (PCR) (NEGATIVE) SARS-CoV-2 (PCR) (NEGATIVE) Group A Strep Antibody (NEGATIVE) 11/21/23 Range/Units 11:01 WBC (4.23-9.07) x10^3/uL RBC (4.63-6.08) x10^6/uL Hgb (13.7-17.5) g/dL Hct (40.1-51.0) % MCV (79.0-92.2) fL MCH (25.7-32.2) pg MCHC (32.3-36.5) g/dL RDW (11.6-14.4) % Plt Count (163-337) x10^3/uL MPV (9.4-12.4) fL Gran % (34.0-67.9) % Immature Gran % (Auto) (0.001-0.429) % Nucleat RBC Rel Count (0.00-0.2) % Eos # (Auto) (0.04-0.54) x10^3/uL Immature Gran # (Auto) (0.001-0.031) x10^3u/L Absolute Lymphs (auto) (1.32-3.57) x10^3/uL Absolute Monos (auto) (0.30-0.82) x10^3/uL Absolute Nucleated RBC (0.00-0.012) x10^3u/L Lymphocytes % (21.8-53.1) % Monocytes % (5.3-12.2) % Eosinophils % (0.8-7.0) % Basophils % (0.2-1.2) % Absolute Granulocytes (1.78-5.38) x10^3/uL Basophils # (0.01-0.08) x10^3/uL Sodium (135-145) mmol/L Potassium (3.5-5.1) mmol/L Chloride (98-107) mmol/L Carbon Dioxide (22-30) mmol/L Anion Gap (5-15) MEQ/L BUN (9-20) mg/dL Creatinine (0.66-1.25) mg/dL Estimated GFR ML/MIN Glucose (74-106) mg/dL POC Glucometer 150 H (74 to 106) mg/dL Lactic Acid (0.4-2.0) Calcium (8.4-10.2) mg/dL Total Bilirubin (0.2-1.3) mg/dL AST (17-59) U/L ALT (0-50) U/L Alkaline Phosphatase (38-126) U/L NT-Pro-B Natriuret Pep (<300) pg/mL Serum Total Protein (6.3-8.2) g/dL Albumin (3.5-5.0) g/dL Procalcitonin (0.030-0.080) ng/mL Urine Color (Yellow) Urine Appearance (Clear) Urine pH (4.6-8.0) Ur Specific Millen (1.005-1.030) Urine Protein (Negative) Urine Glucose (UA) (Negative) mg/dL Urine Ketones (Negative) Urine Blood (Negative) Urine Nitrite (Negative) Urine Bilirubin (Negative) Urine Urobilinogen (0.2) mg/dL Ur Leukocyte Esterase (Negative) Urine Microscopic RBC (0-5) /HPF Urine Microscopic WBC (0-5) /HPF Ur Epithelial Cells (None Seen) /HPF Urine Bacteria (None Seen) /HPF Urine Culture Reflexed (NO) Influenza Type A Ag (NEGATIVE) Influenza Type B Ag (NEGATIVE) RSV (PCR) (NEGATIVE) SARS-CoV-2 (PCR) (NEGATIVE) Group A Strep Antibody (NEGATIVE) Radiology Exams: Radiology Procedures Category Date Time Status CHEST 1 VIEW (PORTABLE) Stat Exams 11/20/23 15:09 Completed ECHO W/2D AND DOPPLER [US] Routine Exams 11/21/23 12:04 Ordered FOOT (MINIMUM 3 VIEWS) Routine Exams 11/21/23 12:04 Completed VENOUS BILATERAL EXTREMITY [US] Stat Exams 11/21/23 12:04 Ordered Multi-Disciplinary Progress Notes: Multi-Disciplinary Progress Notes 11/21/23 08:11 Pharmacy Note by Win Chan ZOSYMarcia DOSING FOR CR CL = 37 ML/MIN SERUM CREATININE = 1.78 ZOSYN HIGH DOSE = 4.5 GM Q6H.... DUE TO ELEVEATED SR CR...USE ZOSYN 3.375 GM Q6H WILL WATCH INTERACTION BETWEEN ZOSYN AND MAXWELL ARNDT Initialized on 11/21/23 08:11 - END OF NOTE 11/21/23 08:09 Pharmacy Note by Win Chan Pharmacokinetic dosing service Date: 11/21/23 Time: 0800 Objective: Patient: Cameron Dennis Floor: [address] Age: 73 yo Serum creatinine: 1.78 mg/dL Height: 69 Inches Weight (kg): 111 Diagnosis: SEPSIS Relevant medical/social history: Cultures and sensitivities: PENDING Other labs: PROCALCITONIN 21.8 Assessment: IBW (kg): 70.70 Dosing wt(kg): 111 Estimated Creatinine clearance (ml/min): 38.1 CRCL method: Cockcroft and Gault using ibw(default). Drug selected: Vancomycin Loading dose (mg): 0 Vd (liters): 88.8 (factor used: 0.8 L/kg) Ronal (hr-1): 0.036 Half life (hrs): 19.25 Recommended dose: 2000 mg Interval: 24 hrs Infusion time (hrs): 2.0 Predicted peak (mcg/mL): 37.6 Predicted trough (mcg/mL): 17.03 Total body weight is being used for vancomycin dosing. Renal function is stable [ ] /unstable [XXXX ] Recommendations: Give Vancomycin 2000 mg q 24 hrs with an expected Cpeak of 37.6 mcg/ml and an expected Ctrough of 17.03 mcg/ml Renal dosing of other antibiotics (review renal dosing of other medications and list guidelines here): BAR Thank you for the consult, will continue to follow. Signature: Ness CHAN VANCOMYCIN TROUGH TUESDAY AM Initialized on 11/21/23 08:09 - END OF NOTE Assessment/Plan (1) Sepsis Current Visit: Yes Status: Acute Assessment & Plan: -Most likely source of infection -cellulitis of LLE -UA/ CXR WNL -LA elevated at 2.1- trend -Procal elevated at 21.8 -Blood and urine cultures pending -Supplemental oxygen with goal spo2 >92% - at RA which is baseline -Vanc/zosyn - started 11/21/23 -antimicrobal history -Doxycycline/ceftriaxone 11/19/20 -discontinued -culture wound if able -UA/CXR negative -PPI -Lovenox -febrile today at 101.1 -hypotensive overnight - midodrine started, stable (2) Cellulitis of left lower extremity Current Visit: Yes Status: Acute Code(s): L03.116 - CELLULITIS OF LEFT LOWER LIMB (3) Acute kidney injury Current Visit: Yes Status: Acute Assessment & Plan: -baseline wnl -improving at 1.78<1.90 -AVOID LYNN/ARB/diurectics/NSAIDS -Monitor renal/lytes daily -gentle hydration Code(s): N17.9 - ACUTE KIDNEY FAILURE, UNSPECIFIED (4) Cerebral palsy Current Visit: Yes Status: Acute Assessment & Plan: -Noted- adds complexity Code(s): G80.9 - CEREBRAL PALSY, UNSPECIFIED (5) Dizziness Current Visit: Yes Status: Acute Assessment & Plan: -most likely secondary to illness -improved today -ortho vitals -echo -tele -midodrine started, will continue Code(s): R42 - DIZZINESS AND GIDDINESS (6) Type 2 diabetes mellitus with ketoacidosis without coma Current Visit: Yes Status: Acute Assessment & Plan: -ADA diet -SSI VTE:lovenox PPI: protonix Code status: Full code Dispo 2-3 days Code(s): E11.10 - TYPE 2 DIABETES MELLITUS WITH KETOACIDOSIS WITHOUT COMA
--- NOTE | 2023-11-21 16:23 | XRAY ---
Indication: Bilateral lower extremity edema/erythema. Two-dimensional sonogram and color Doppler imaging major venous vessels left and right leg performed. Comparison: None Right popliteal vein demonstrates tiny nonoccluding thrombus. No thrombus in the remaining deep venous vessels left and right leg including greater saphenous vein. Patent veins demonstrate normal compressibility. Venous waveforms are normal with and without augmentation. Impression: Nonoccluding DVT right popliteal vein. Left leg negative for DVT.
--- NOTE | 2023-11-21 16:47 | PCM.CONS ---
Podiatry HPI - Consult Date of Consultation Date: 11/21/23 Reason for Consult: sepsis of unknown origin suspected cellulitis Consulting Provider: JAYY BLISS DPM - HPI History of Present Illness: 73-year-old with history of cerebral palsy, diabetes mellitus, hypertension, coronary artery disease status post CABG presented in the ER with complains of fever chills and dizziness. Patient reported he was having chills last night and this morning he woke up dizzy, lightheaded and had a fever of 104 prior to arrival, took Tylenol and currently afebrile. Patient reports generalized weakness fatigue and tiredness. Denies any chest pain palpitations or shortness of breath. No abdominal pain nausea or vomiting reported. Denies any headache, numbness tingling or focal weakness. Denies any known sick contact. Patient has chronic swelling of right lower extremity as compared to left from a previous femur fracture which is not any worse than usual. Has bilateral redness in the lower legs which is not any worse than usual as well. Patient is on room air around 96%. Medications & Allergies Home Medications: Home Medication List Atorvastatin Calcium 1 tab PO HS 11/20/23 [History Confirmed 11/20/23] Buspirone HCl 15 mg PO TID 11/20/23 [History Confirmed 11/20/23] Clopidogrel Bisulfate [Clopidogrel] 75 mg PO DAILY 11/20/23 [History Confirmed 11/20/23] Cyanocobalamin (Vitamin B-12) [B-12] 1 tab PO DAILY 11/20/23 [History Confirmed 11/20/23] Folic Acid 400 mcg PO DAILY 11/20/23 [History Confirmed 11/20/23] Furosemide 40 mg [Lasix 40 MG] 40 mg PO DAILY 11/20/23 [History Confirmed 11/20/23] Gabapentin [Neurontin ] 1 tab PO TID 11/20/23 [History Confirmed 11/20/23] Glipizide 5 mg [Glucotrol 5 MG] 5 mg PO DAILY 11/20/23 [History Confirmed 11/20/23] Isosorbide Mononitrate 30 mg [Imdur 30 MG] 1 tab PO DAILY 11/20/23 [History Confirmed 11/20/23] Levothyroxine Sodium 50 Mcg [Synthroid 50 Mcg] 1 tab PO DAILY 11/20/23 [History Confirmed 11/20/23] Metformin HCl [Metformin HCl ER] 750 mg PO BID 11/20/23 [History Confirmed 11/20/23] Nitroglycerin 0.4 mg (Ed) [Nitrostat 0.4 MG (ED)] 1 tab SL Q5MIN PRN MR X 3 PRN 11/20/23 [History Confirmed 11/20/23] Oxycodone HCl 5 mg Ir [Oxy-IR 5 MG] 5 mg PO Q4H PRN PRN 11/20/23 [History Confirmed 11/20/23] PANTOPRAZOLE 40 mg Tablet [Protonix 40MG Tablet] 40 mg PO DAILY 11/20/23 [History Confirmed 11/20/23] Phenytoin Sodium Extended 200 mg PO BID 11/20/23 [History Confirmed 11/20/23] Potassium Chloride 1 tab PO BID 11/20/23 [History Confirmed 11/20/23] Ramipril 1.25 mg [Altace 1.25 MG] 1 tab PO DAILY 11/20/23 [History Confirmed 11/20/23] Tamsulosin HCl 0.4 mg [Flomax 0.4 MG] 0.4 mg PO DAILY 11/20/23 [History Confirmed 11/20/23] calcitrioL [Calcitriol] 1 tab PO DAILY 11/20/23 [History Confirmed 11/20/23] carvediloL [Carvedilol] 6.25 mg PO BID 11/20/23 [History Confirmed 11/20/23] Allergies/Adverse Reactions: Allergies Allergy/AdvReac Type Severity Reaction Status Date / Time No Known Allergies Allergy Mild Verified 12/07/14 18:10 - Past Medical History Past Medical History: Yes Neurological History: Peripheral Neuropathy, Seizures, Other ENT History: Glaucoma Cardiac History: Myocardial Infarction (DC) Respiratory History: No Pertinent History Endocrine Medical History: Diabetes Type II Musculoskelatal History: Arthritis GI Medical History: GERD History: No Pertinent History Pyscho-Social History: No Pertinent History Male Reproductive Disorders: No Pertinent History Comment: CERBRAL PALSY - Past Surgical History Past Surgical History: Yes Neuro Surgical History: No Pertinent History Cardiac History: CABG, Cardiac Stent Respiratory Surgery: No Pertinent History GI Surgical History: Appendectomy Genitourinary Surgical Hx: No Pertinent History Musculskeletal Surgical Hx: No Pertinent History Male Surgical History: No Pertinent History Other Surgical History: SKIN GRAPHS - Social History Smoking Status: Never smoker Exposure to second hand smoke: Yes Alcohol: None Drug Use: none - Social Determinants of Health Will the patient participate in the screening: Declined to provide Physical Exam - Narrative Narrative Physical Exam: Podiatry Physical Exam Results - Labs Lab/Micro Results: Lab Results-Last 24 Hours 11/20/23 11/20/23 11/20/23 Range/Units 16:43 20:14 22:00 WBC (4.23-9.07) x10^3/uL RBC (4.63-6.08) x10^6/uL Hgb (13.7-17.5) g/dL Hct (40.1-51.0) % MCV (79.0-92.2) fL MCH (25.7-32.2) pg MCHC (32.3-36.5) g/dL RDW (11.6-14.4) % Plt Count (163-337) x10^3/uL MPV (9.4-12.4) fL Gran % (34.0-67.9) % Immature Gran % (Auto) (0.001-0.429) % Nucleat RBC Rel Count (0.00-0.2) % Eos # (Auto) (0.04-0.54) x10^3/uL Immature Gran # (Auto) (0.001-0.031) x10^3u/L Absolute Lymphs (auto) (1.32-3.57) x10^3/uL Absolute Monos (auto) (0.30-0.82) x10^3/uL Absolute Nucleated RBC (0.00-0.012) x10^3u/L Lymphocytes % (21.8-53.1) % Monocytes % (5.3-12.2) % Eosinophils % (0.8-7.0) % Basophils % (0.2-1.2) % Absolute Granulocytes (1.78-5.38) x10^3/uL Basophils # (0.01-0.08) x10^3/uL ESR (0-15) mm/hr Sodium (135-145) mmol/L Potassium (3.5-5.1) mmol/L Chloride (98-107) mmol/L Carbon Dioxide (22-30) mmol/L Anion Gap (5-15) MEQ/L BUN (9-20) mg/dL Creatinine (0.66-1.25) mg/dL Estimated GFR ML/MIN Glucose (74-106) mg/dL POC Glucometer 156 H (74 to 106) mg/dL Lactic Acid 2.1 H (0.4-2.0) Calcium (8.4-10.2) mg/dL Total Bilirubin (0.2-1.3) mg/dL AST (17-59) U/L ALT (0-50) U/L Alkaline Phosphatase (38-126) U/L Serum Total Protein (6.3-8.2) g/dL Albumin (3.5-5.0) g/dL Urine Color Dark Yellow (Yellow) Urine Appearance Clear (Clear) Urine pH 5.0 (4.6-8.0) Ur Specific [place] 1.020 (1.005-1.030) Urine Protein 30 (Negative) Urine Glucose (UA) Negative (Negative) mg/dL Urine Ketones Trace A (Negative) Urine Blood Negative (Negative) Urine Nitrite Negative (Negative) Urine Bilirubin Negative (Negative) Urine Urobilinogen 1.0 A (0.2) mg/dL Ur Leukocyte Esterase Negative (Negative) Urine Microscopic RBC 0-2 (0-5) /HPF Urine Microscopic WBC 0-2 (0-5) /HPF Ur Epithelial Cells Rare (None Seen) /HPF Urine Bacteria None Seen (None Seen) /HPF Urine Culture Reflexed NO (NO) 11/21/23 11/21/23 11/21/23 Range/Units 04:42 04:42 05:00 WBC 12.3 H (4.23-9.07) x10^3/uL RBC 3.37 L (4.63-6.08) x10^6/uL Hgb 10.5 L (13.7-17.5) g/dL Hct 30.5 L (40.1-51.0) % MCV 90.5 (79.0-92.2) fL MCH 31.2 (25.7-32.2) pg MCHC 34.4 (32.3-36.5) g/dL RDW 13.8 (11.6-14.4) % Plt Count 122 L (163-337) x10^3/uL MPV 9.7 (9.4-12.4) fL Gran % 91.5 H (34.0-67.9) % Immature Gran % (Auto) 0.7 H (0.001-0.429) % Nucleat RBC Rel Count 0.0 (0.00-0.2) % Eos # (Auto) 0 L (0.04-0.54) x10^3/uL Immature Gran # (Auto) 0.08 H (0.001-0.031) x10^3u/L Absolute Lymphs (auto) 0.62 L (1.32-3.57) x10^3/uL Absolute Monos (auto) 0.32 (0.30-0.82) x10^3/uL Absolute Nucleated RBC 0.00 (0.00-0.012) x10^3u/L Lymphocytes % 5.0 L (21.8-53.1) % Monocytes % 2.6 L (5.3-12.2) % Eosinophils % 0.0 L (0.8-7.0) % Basophils % 0.2 (0.2-1.2) % Absolute Granulocytes 11.23 H (1.78-5.38) x10^3/uL Basophils # 0.03 (0.01-0.08) x10^3/uL ESR 36 H (0-15) mm/hr Sodium 136 (135-145) mmol/L Potassium 3.8 (3.5-5.1) mmol/L Chloride 103 (98-107) mmol/L Carbon Dioxide 22 (22-30) mmol/L Anion Gap 14.5 (5-15) MEQ/L BUN 37 H (9-20) mg/dL Creatinine 1.78 H (0.66-1.25) mg/dL Estimated GFR 40.3 ML/MIN Glucose 162 H (74-106) mg/dL POC Glucometer (74 to 106) mg/dL Lactic Acid (0.4-2.0) Calcium 7.0 L (8.4-10.2) mg/dL Total Bilirubin 0.50 (0.2-1.3) mg/dL AST 33 (17-59) U/L ALT 25 (0-50) U/L Alkaline Phosphatase 116 (38-126) U/L Serum Total Protein 5.3 L (6.3-8.2) g/dL Albumin 2.9 L (3.5-5.0) g/dL Urine Color (Yellow) Urine Appearance (Clear) Urine pH (4.6-8.0) Ur Specific [place] (1.005-1.030) Urine Protein (Negative) Urine Glucose (UA) (Negative) mg/dL Urine Ketones (Negative) Urine Blood (Negative) Urine Nitrite (Negative) Urine Bilirubin (Negative) Urine Urobilinogen (0.2) mg/dL Ur Leukocyte Esterase (Negative) Urine Microscopic RBC (0-5) /HPF Urine Microscopic WBC (0-5) /HPF Ur Epithelial Cells (None Seen) /HPF Urine Bacteria (None Seen) /HPF Urine Culture Reflexed (NO) 11/21/23 11/21/23 11/21/23 Range/Units 07:01 11:01 13:14 WBC (4.23-9.07) x10^3/uL RBC (4.63-6.08) x10^6/uL Hgb (13.7-17.5) g/dL Hct (40.1-51.0) % MCV (79.0-92.2) fL MCH (25.7-32.2) pg MCHC (32.3-36.5) g/dL RDW (11.6-14.4) % Plt Count (163-337) x10^3/uL MPV (9.4-12.4) fL Gran % (34.0-67.9) % Immature Gran % (Auto) (0.001-0.429) % Nucleat RBC Rel Count (0.00-0.2) % Eos # (Auto) (0.04-0.54) x10^3/uL Immature Gran # (Auto) (0.001-0.031) x10^3u/L Absolute Lymphs (auto) (1.32-3.57) x10^3/uL Absolute Monos (auto) (0.30-0.82) x10^3/uL Absolute Nucleated RBC (0.00-0.012) x10^3u/L Lymphocytes % (21.8-53.1) % Monocytes % (5.3-12.2) % Eosinophils % (0.8-7.0) % Basophils % (0.2-1.2) % Absolute Granulocytes (1.78-5.38) x10^3/uL Basophils # (0.01-0.08) x10^3/uL ESR (0-15) mm/hr Sodium (135-145) mmol/L Potassium (3.5-5.1) mmol/L Chloride (98-107) mmol/L Carbon Dioxide (22-30) mmol/L Anion Gap (5-15) MEQ/L BUN (9-20) mg/dL Creatinine (0.66-1.25) mg/dL Estimated GFR ML/MIN Glucose (74-106) mg/dL POC Glucometer 158 H 150 H (74 to 106) mg/dL Lactic Acid 0.8 (0.4-2.0) Calcium (8.4-10.2) mg/dL Total Bilirubin (0.2-1.3) mg/dL AST (17-59) U/L ALT (0-50) U/L Alkaline Phosphatase (38-126) U/L Serum Total Protein (6.3-8.2) g/dL Albumin (3.5-5.0) g/dL Urine Color (Yellow) Urine Appearance (Clear) Urine pH (4.6-8.0) Ur Specific [place] (1.005-1.030) Urine Protein (Negative) Urine Glucose (UA) (Negative) mg/dL Urine Ketones (Negative) Urine Blood (Negative) Urine Nitrite (Negative) Urine Bilirubin (Negative) Urine Urobilinogen (0.2) mg/dL Ur Leukocyte Esterase (Negative) Urine Microscopic RBC (0-5) /HPF Urine Microscopic WBC (0-5) /HPF Ur Epithelial Cells (None Seen) /HPF Urine Bacteria (None Seen) /HPF Urine Culture Reflexed (NO) 11/21/23 Range/Units 16:24 WBC (4.23-9.07) x10^3/uL RBC (4.63-6.08) x10^6/uL Hgb (13.7-17.5) g/dL Hct (40.1-51.0) % MCV (79.0-92.2) fL MCH (25.7-32.2) pg MCHC (32.3-36.5) g/dL RDW (11.6-14.4) % Plt Count (163-337) x10^3/uL MPV (9.4-12.4) fL Gran % (34.0-67.9) % Immature Gran % (Auto) (0.001-0.429) % Nucleat RBC Rel Count (0.00-0.2) % Eos # (Auto) (0.04-0.54) x10^3/uL Immature Gran # (Auto) (0.001-0.031) x10^3u/L Absolute Lymphs (auto) (1.32-3.57) x10^3/uL Absolute Monos (auto) (0.30-0.82) x10^3/uL Absolute Nucleated RBC (0.00-0.012) x10^3u/L Lymphocytes % (21.8-53.1) % Monocytes % (5.3-12.2) % Eosinophils % (0.8-7.0) % Basophils % (0.2-1.2) % Absolute Granulocytes (1.78-5.38) x10^3/uL Basophils # (0.01-0.08) x10^3/uL ESR (0-15) mm/hr Sodium (135-145) mmol/L Potassium (3.5-5.1) mmol/L Chloride (98-107) mmol/L Carbon Dioxide (22-30) mmol/L Anion Gap (5-15) MEQ/L BUN (9-20) mg/dL Creatinine (0.66-1.25) mg/dL Estimated GFR ML/MIN Glucose (74-106) mg/dL POC Glucometer 112 H (74 to 106) mg/dL Lactic Acid (0.4-2.0) Calcium (8.4-10.2) mg/dL Total Bilirubin (0.2-1.3) mg/dL AST (17-59) U/L ALT (0-50) U/L Alkaline Phosphatase (38-126) U/L Serum Total Protein (6.3-8.2) g/dL Albumin (3.5-5.0) g/dL Urine Color (Yellow) Urine Appearance (Clear) Urine pH (4.6-8.0) Ur Specific [place] (1.005-1.030) Urine Protein (Negative) Urine Glucose (UA) (Negative) mg/dL Urine Ketones (Negative) Urine Blood (Negative) Urine Nitrite (Negative) Urine Bilirubin (Negative) Urine Urobilinogen (0.2) mg/dL Ur Leukocyte Esterase (Negative) Urine Microscopic RBC (0-5) /HPF Urine Microscopic WBC (0-5) /HPF Ur Epithelial Cells (None Seen) /HPF Urine Bacteria (None Seen) /HPF Urine Culture Reflexed (NO) Accuchecks Date 11/21/23 Date 11/21/23 Date 11/20/23 Time 22:00 - Radiology Impressions Radiology Exams & Impressions: Radiology Procedures Category Date Time Status CHEST 1 VIEW (PORTABLE) Stat Exams 11/20/23 15:09 Completed ECHO W/2D AND DOPPLER [US] Routine Exams 11/21/23 12:04 Taken FOOT (MINIMUM 3 VIEWS) Routine Exams 11/21/23 12:04 Completed VENOUS BILATERAL EXTREMITY [US] Stat Exams 11/21/23 12:04 Completed - Other Procedures and Tests Respiratory Therapy 11/20/23 20:52 BiPap/CPAP ROUTINE Assessment/Plan (1) Venous insufficiency (chronic) (peripheral) Current Visit: Yes Status: Acute Assessment & Plan: Initial patient examination and evaluation Ultrasound obtained bilateral lower extremity: right popliteal fossa demonstrating non occluding thrombus, left lower extremity with no indication of occlusion Culture obtained left leg wound. Clinically does not appear to be infected at this time Changes to the right lower extremity consistent with hyperkeratotic and exfoliative changes secondary to venous insufficiency with some baseline lyphedema Patient already fitted for lymphedema pumps IV abx per medicine team. awaiting culture results to assess if potential source of infection. Unna boot applied to bilateral lower extremity Will follow with you. (2) Cellulitis Current Visit: Yes Status: Acute Code(s): L03.90 - CELLULITIS, UNSPECIFIED (3) Cellulitis of left lower extremity Current Visit: Yes Status: Acute Code(s): L03.116 - CELLULITIS OF LEFT LOWER LIMB (4) Sepsis Current Visit: Yes Status: Acute (5) Type 2 diabetes mellitus with ketoacidosis without coma Current Visit: Yes Status: Acute Code(s): E11.10 - TYPE 2 DIABETES MELLITUS WITH KETOACIDOSIS WITHOUT COMA
[2023-11-21] MEDS: ELIQUIS 2.5 MG TABLET PO SCH (21:17)
[2023-11-21] MEDS: Dilantin 100 MG PO SCH (21:17)
[2023-11-21] MEDS: ZOCOR 20MG PO SCH (21:17)
[2023-11-21] MEDS ORDERED: NON-FORMULARY ITEM (Atorvastatin Calcium [Atorvastatin Calcium] 80 MG Tablet) PO SCH (22:00)
[2023-11-22 05:00] LABS: Absolute Neutrophil Ct (ANC) 7.82 x10^3/uL (1.78-5.38); BASOPHIL % 0.2 % (0.2-1.2); Basophil (Absolute #) 0.02 x10^3/uL (0.01-0.08); Eosinophil % 0.1 % (0.8-7.0); Eosinophil (Absolute #) 0.01 x10^3/uL (0.04-0.54); Hematocrit 27.7 % (40.1-51.0); Hemoglobin 9.4 g/dL (13.7-17.5); IMMATURE GRAN % 1.1 % (0.001-0.429); Lymphocyte (Absolute #) 0.84 x10^3/uL (1.32-3.57); Lymphocytes % 9.3 % (21.8-53.1); Mean Cell Volume 91.4 fL (79.0-92.2); Mean Corpuscular Hgb Concent. 33.9 g/dL (32.3-36.5); Mean Platelet Volume 9.8 fL (9.4-12.4); Monocyte (Absolute #) 0.22 x10^3/uL (0.30-0.82); Monocytes % 2.4 % (5.3-12.2); Neutrophil % 86.9 % (34.0-67.9); Platelet Count 114 x10^3/uL (163-337); Red Blood Count 3.03 x10^6/uL (4.63-6.08); Red Cell Distribution Width 13.6 % (11.6-14.4)
--- NOTE | 2023-11-22 05:09 | PCM.NOTE ---
Date and Time: 11/22/23 0502 Subjective Assessment: Mr. Dennis is a 73 year old male with a pmhx of cerebral palsy, peripheral neuropathy, seizures, CAD (s/p CABG), OK, DM, and GERD admitted 11/20/23 with sepsis of unknown etiology after experiencing about a week history of fever, chills, body aches, and dizziness. TMax of 104. CXR negative for acute findings. Lab findings remarkable for leukocytosis, KUMAR with creat at 1.9 on arrival (baseline 1.0), procal at 21.800,and elevated lactic at 2.1. Urinalysis and respiratory viral panel negative. Upon exam, patient noted with BLE edema/erythema as well as what appears to be a chronic wound on his right great toe. Patient was started on Ceftriaxone/doxy - will continue with vanc/zosyn. Will attempt to obtain cultures. Venous doppler Nonoccluding DVT right popliteal vein. Left leg negative for DVT. Will start eliquis 10mg bid x 7 days, 5mg bid there after. Echo pending. Xray of right foot negative for acute findings. 11/22/23: Met with patient bedside. Patient afebrile overnight. Endorses continued weakness and non-productive cough. He does report symptoms are improved. Discussed doppler findings showing DVT. Eliquis started. Wound cultures growing gram + organism. Labs with low potassium and magnesium this morning. Iron sat at 7%. Plan for continuation of antibiotic - follow cultures, replenish K+/Mg, and start venofer (most likely will have to continue infusions as OP). Patient did have some urinary retention and needed a michelle catheter placed. Will attempt to discontinue, may need urology OP if persistent. - Review of Systems Constitutional: Weakness Eyes: No Symptoms Ears, Nose, & Throat: No Symptoms Respiratory: Cough Cardiac: No Symptoms Abdominal/Gastrointestinal: No Symptoms Genitourinary Symptoms: Urinary Retention (Michelle cath) Musculoskeletal: No Symptoms Skin: Cellulitis (BLE) Neurological: No Symptoms Psychological: No Symptoms Endocrine: No Symptoms Objective Exam General Appearance: no apparent distress Neurologic Exam: alert, oriented x 3, cooperative Skin Exam: other (BLE edema/erythema/drainage with compression dressings) Eye Exam: PERRL Ears, Nose, Throat Exam: moist mucous membranes Neck Exam: normal inspection Respiratory Exam: normal breath sounds, lungs clear Cardiovascular Exam: regular rate/rhythm, normal heart sounds Gastrointestinal/Abdomen Exam: soft, normal bowel sounds Extremity Exam: inflammation, swelling Back Exam: normal inspection Male Genitalia Exam: deferred Objective Data Vital Signs: Vital Signs - 24 hr Temp Pulse Resp BP Pulse Ox 11/22/23 04:00 98.5 F 76 18 113/53 96 11/21/23 23:45 97.1 F 84 20 116/53 92 L 11/21/23 19:39 100 F 86 18 128/62 91 L 11/21/23 19:37 94 L 11/21/23 17:53 99.3 F 93 H 20 133/60 94 L 11/21/23 17:24 100.5 F 11/21/23 13:00 99.9 F 85 21 106/51 92 L 11/21/23 09:54 101.1 F 11/21/23 08:00 99.6 F 90 18 122/76 95 11/21/23 07:15 95 Pain Assessment - Last Documented Pain Intensity 0 Intake and Output: Intake & Output 11/19/23 11/20/23 11/21/23 11/22/23 11:59 11:59 11:59 11:59 Intake Total 1686 2825 Output Total 2100 Balance 1686 725 Weight 111.9 kg Lab Results: Lab Results-Last 24 Hours 11/21/23 11/21/23 11/21/23 Range/Units 04:42 04:42 04:42 WBC 12.3 H (4.23-9.07) x10^3/uL RBC 3.37 L (4.63-6.08) x10^6/uL Hgb 10.5 L (13.7-17.5) g/dL Hct 30.5 L (40.1-51.0) % MCV 90.5 (79.0-92.2) fL MCH 31.2 (25.7-32.2) pg MCHC 34.4 (32.3-36.5) g/dL RDW 13.8 (11.6-14.4) % Plt Count 122 L (163-337) x10^3/uL MPV 9.7 (9.4-12.4) fL Gran % 91.5 H (34.0-67.9) % Immature Gran % (Auto) 0.7 H (0.001-0.429) % Nucleat RBC Rel Count 0.0 (0.00-0.2) % Eos # (Auto) 0 L (0.04-0.54) x10^3/uL Immature Gran # (Auto) 0.08 H (0.001-0.031) x10^3u/L Absolute Lymphs (auto) 0.62 L (1.32-3.57) x10^3/uL Absolute Monos (auto) 0.32 (0.30-0.82) x10^3/uL Absolute Nucleated RBC 0.00 (0.00-0.012) x10^3u/L Lymphocytes % 5.0 L (21.8-53.1) % Monocytes % 2.6 L (5.3-12.2) % Eosinophils % 0.0 L (0.8-7.0) % Basophils % 0.2 (0.2-1.2) % Absolute Granulocytes 11.23 H (1.78-5.38) x10^3/uL Basophils # 0.03 (0.01-0.08) x10^3/uL ESR (0-15) mm/hr Sodium 136 (135-145) mmol/L Potassium 3.8 (3.5-5.1) mmol/L Chloride 103 (98-107) mmol/L Carbon Dioxide 22 (22-30) mmol/L Anion Gap 14.5 (5-15) MEQ/L BUN 37 H (9-20) mg/dL Creatinine 1.78 H (0.66-1.25) mg/dL Estimated GFR 40.3 ML/MIN Glucose 162 H (74-106) mg/dL POC Glucometer (74 to 106) mg/dL Hemoglobin A1c 6.67 H (4.5-6.0) % Lactic Acid (0.4-2.0) Calcium 7.0 L (8.4-10.2) mg/dL Total Bilirubin 0.50 (0.2-1.3) mg/dL AST 33 (17-59) U/L ALT 25 (0-50) U/L Alkaline Phosphatase 116 (38-126) U/L Serum Total Protein 5.3 L (6.3-8.2) g/dL Albumin 2.9 L (3.5-5.0) g/dL 11/21/23 11/21/23 11/21/23 Range/Units 05:00 07:01 11:01 WBC (4.23-9.07) x10^3/uL RBC (4.63-6.08) x10^6/uL Hgb (13.7-17.5) g/dL Hct (40.1-51.0) % MCV (79.0-92.2) fL MCH (25.7-32.2) pg MCHC (32.3-36.5) g/dL RDW (11.6-14.4) % Plt Count (163-337) x10^3/uL MPV (9.4-12.4) fL Gran % (34.0-67.9) % Immature Gran % (Auto) (0.001-0.429) % Nucleat RBC Rel Count (0.00-0.2) % Eos # (Auto) (0.04-0.54) x10^3/uL Immature Gran # (Auto) (0.001-0.031) x10^3u/L Absolute Lymphs (auto) (1.32-3.57) x10^3/uL Absolute Monos (auto) (0.30-0.82) x10^3/uL Absolute Nucleated RBC (0.00-0.012) x10^3u/L Lymphocytes % (21.8-53.1) % Monocytes % (5.3-12.2) % Eosinophils % (0.8-7.0) % Basophils % (0.2-1.2) % Absolute Granulocytes (1.78-5.38) x10^3/uL Basophils # (0.01-0.08) x10^3/uL ESR 36 H (0-15) mm/hr Sodium (135-145) mmol/L Potassium (3.5-5.1) mmol/L Chloride (98-107) mmol/L Carbon Dioxide (22-30) mmol/L Anion Gap (5-15) MEQ/L BUN (9-20) mg/dL Creatinine (0.66-1.25) mg/dL Estimated GFR ML/MIN Glucose (74-106) mg/dL POC Glucometer 158 H 150 H (74 to 106) mg/dL Hemoglobin A1c (4.5-6.0) % Lactic Acid (0.4-2.0) Calcium (8.4-10.2) mg/dL Total Bilirubin (0.2-1.3) mg/dL AST (17-59) U/L ALT (0-50) U/L Alkaline Phosphatase (38-126) U/L Serum Total Protein (6.3-8.2) g/dL Albumin (3.5-5.0) g/dL 11/21/23 11/21/23 11/21/23 Range/Units 13:14 16:24 21:27 WBC (4.23-9.07) x10^3/uL RBC (4.63-6.08) x10^6/uL Hgb (13.7-17.5) g/dL Hct (40.1-51.0) % MCV (79.0-92.2) fL MCH (25.7-32.2) pg MCHC (32.3-36.5) g/dL RDW (11.6-14.4) % Plt Count (163-337) x10^3/uL MPV (9.4-12.4) fL Gran % (34.0-67.9) % Immature Gran % (Auto) (0.001-0.429) % Nucleat RBC Rel Count (0.00-0.2) % Eos # (Auto) (0.04-0.54) x10^3/uL Immature Gran # (Auto) (0.001-0.031) x10^3u/L Absolute Lymphs (auto) (1.32-3.57) x10^3/uL Absolute Monos (auto) (0.30-0.82) x10^3/uL Absolute Nucleated RBC (0.00-0.012) x10^3u/L Lymphocytes % (21.8-53.1) % Monocytes % (5.3-12.2) % Eosinophils % (0.8-7.0) % Basophils % (0.2-1.2) % Absolute Granulocytes (1.78-5.38) x10^3/uL Basophils # (0.01-0.08) x10^3/uL ESR (0-15) mm/hr Sodium (135-145) mmol/L Potassium (3.5-5.1) mmol/L Chloride (98-107) mmol/L Carbon Dioxide (22-30) mmol/L Anion Gap (5-15) MEQ/L BUN (9-20) mg/dL Creatinine (0.66-1.25) mg/dL Estimated GFR ML/MIN Glucose (74-106) mg/dL POC Glucometer 112 H 120 H (74 to 106) mg/dL Hemoglobin A1c (4.5-6.0) % Lactic Acid 0.8 (0.4-2.0) Calcium (8.4-10.2) mg/dL Total Bilirubin (0.2-1.3) mg/dL AST (17-59) U/L ALT (0-50) U/L Alkaline Phosphatase (38-126) U/L Serum Total Protein (6.3-8.2) g/dL Albumin (3.5-5.0) g/dL Radiology Exams: Radiology Procedures Category Date Time Status CHEST 1 VIEW (PORTABLE) Stat Exams 11/20/23 15:09 Completed ECHO W/2D AND DOPPLER [US] Routine Exams 11/21/23 12:04 Taken FOOT (MINIMUM 3 VIEWS) Routine Exams 11/21/23 12:04 Completed VENOUS BILATERAL EXTREMITY [US] Stat Exams 11/21/23 12:04 Completed Multi-Disciplinary Progress Notes: Multi-Disciplinary Progress Notes 11/21/23 08:11 Pharmacy Note by Win Chan ZOSYN DOSING FOR CR CL = 37 ML/MIN SERUM CREATININE = 1.78 ZOSYN HIGH DOSE = 4.5 GM Q6H.... DUE TO ELEVEATED SR CR...USE ZOSYN 3.375 GM Q6H WILL WATCH INTERACTION BETWEEN ZOSYN AND MAXWELL ARNDT Initialized on 11/21/23 08:11 - END OF NOTE 11/21/23 08:09 Pharmacy Note by Win Chan Pharmacokinetic dosing service Date: 11/21/23 Time: 0800 Objective: Patient: Cameron Dennis Floor: [address] Age: 73 yo Serum creatinine: 1.78 mg/dL Height: 69 Inches Weight (kg): 111 Diagnosis: SEPSIS Relevant medical/social history: Cultures and sensitivities: PENDING Other labs: PROCALCITONIN 21.8 Assessment: IBW (kg): 70.70 Dosing wt(kg): 111 Estimated Creatinine clearance (ml/min): 38.1 CRCL method: Cockcroft and Gault using ibw(default). Drug selected: Vancomycin Loading dose (mg): 0 Vd (liters): 88.8 (factor used: 0.8 L/kg) Ronal (hr-1): 0.036 Half life (hrs): 19.25 Recommended dose: 2000 mg Interval: 24 hrs Infusion time (hrs): 2.0 Predicted peak (mcg/mL): 37.6 Predicted trough (mcg/mL): 17.03 Total body weight is being used for vancomycin dosing. Renal function is stable [ ] /unstable [XXXX ] Recommendations: Give Vancomycin 2000 mg q 24 hrs with an expected Cpeak of 37.6 mcg/ml and an expected Ctrough of 17.03 mcg/ml Renal dosing of other antibiotics (review renal dosing of other medications and list guidelines here): BAR Thank you for the consult, will continue to follow. Signature: Ness CHAN VANCOMYCIN TROUGH TUESDAY AM Initialized on 11/21/23 08:09 - END OF NOTE Assessment/Plan (1) Sepsis Current Visit: Yes Status: Acute Assessment & Plan: -Most likely source of infection -cellulitis of LLE -UA/ CXR WNL -LA elevated at 2.1- trend -Procal elevated at 21.8 -Blood and urine cultures pending -Supplemental oxygen with goal spo2 >92% - at RA which is baseline -Vanc/zosyn - started 11/21/23 -antimicrobal history -Doxycycline/ceftriaxone 11/19/20 -discontinued -culture wound if able -UA/CXR negative -PPI -Lovenox -febrile today at 101.1 -hypotensive overnight - midodrine started, stable 11/22/23 -no longer meets criteria -WBC WNL, vitals stable, LA wnl -Wound culture with gram + ID- will follow- continue vanc/zosyn for now (2) Cellulitis of left lower extremity Current Visit: Yes Status: Acute Code(s): L03.116 - CELLULITIS OF LEFT LOWER LIMB -wound cult with gram + ID, most likely source of infection-vanc/zosyn - follow culture -podiatry following -Unna boot applied to bilateral lower extremity (3) Acute kidney injury Current Visit: Yes Status: Acute Assessment & Plan: -baseline wnl -improving at 1.78<1.90 -AVOID LYNN/ARB/diurectics/NSAIDS -Monitor renal/lytes daily -gentle hydration 11/22/23 -Improving- continue hydration Code(s): N17.9 - ACUTE KIDNEY FAILURE, UNSPECIFIED (4) Cerebral palsy Current Visit: Yes Status: Acute Assessment & Plan: -Noted- adds complexity Code(s): G80.9 - CEREBRAL PALSY, UNSPECIFIED (5) Dizziness Current Visit: Yes Status: Acute Assessment & Plan: -most likely secondary to illness -improved today -ortho vitals -echo -tele -midodrine started, will continue Code(s): R42 - DIZZINESS AND GIDDINESS (6) Type 2 diabetes mellitus -ADA diet -SSI (8) DVT -DVT nonoccluding right popiteal -Eliquis initiated 10mg bid x 7 days, 5mg bid there after (9) Anemia -chronic -iron profile -PPI -occult stools 11/22/23: -iron sat at 7% - will start venofer (10) Hypokalemia - K+ at 2.5- will replenish (11)Hypomagnesemia -Mg at 0.7, will replenish (12) Urinary Retention -bladder scan showing 800ml retention, patient straight cath and later had > 300ml retention, F/C placed -Flomax -Will attempt to d/c michelle- if unable will set up with urology OP VTE:Eliquis PPI: protonix Code status: Full code Dispo 2-3 days (2) Cellulitis of left lower extremity Current Visit: Yes Status: Acute Code(s): L03.116 - CELLULITIS OF LEFT LOWER LIMB (3) Acute kidney injury Current Visit: Yes Status: Acute Code(s): N17.9 - ACUTE KIDNEY FAILURE, UNSPECIFIED (4) Cerebral palsy Current Visit: Yes Status: Acute Code(s): G80.9 - CEREBRAL PALSY, UNSPECIFIED (5) Dizziness Current Visit: Yes Status: Acute Code(s): R42 - DIZZINESS AND GIDDINESS (6) Deep vein thrombosis (DVT) of popliteal vein of right lower extremity Current Visit: Yes Status: Acute Code(s): I82.431 - ACUTE EMBOLISM AND THROMBOSIS OF RIGHT POPLITEAL VEIN (7) Type 2 diabetes mellitus Current Visit: Yes Status: Acute (8) Anemia Current Visit: Yes Status: Acute Code(s): D64.9 - ANEMIA, UNSPECIFIED (9) Hypokalemia Current Visit: Yes Status: Acute Code(s): E87.6 - HYPOKALEMIA (10) Hypomagnesemia Current Visit: Yes Status: Acute Code(s): E83.42 - HYPOMAGNESEMIA (11) Urinary retention Current Visit: Yes Status: Acute Code(s): R33.9 - RETENTION OF URINE, UNSPECIFIED
[2023-11-22 07:27] LABS: ALBUMIN 2.9 g/dL (3.5-5.0); ANION GAP 11.9 MEQ/L (5-15); BILIRUBIN,TOTAL 0.3 mg/dL (0.2-1.3); Calcium 6.8 mg/dL (8.4-10.2); Creatinine 1 1.64 mg/dL (0.66-1.25); EST GLOMERULAR FILTRATION RATE 44.4 ML/MIN; Total Protein 5.6 g/dL (6.3-8.2)
[2023-11-22 07:33] LABS: MAGNESIUM 0.7 mg/dL (1.6-2.3); Potassium 2.5 mmol/L (3.5-5.1)
[2023-11-22 07:42] LABS: Iron 15 ug/dL (49-181); Iron Saturation 7 % (20-39); TIBC 204 ug/dL (261-497)
[2023-11-22] MEDS: MAGNESIUM SULF 2 G/50 ML BAG 2 GM/50 ML PIGGYBACK IV SCH (08:14)
[2023-11-22] MEDS: POTASSIUM CHLORIDE 20 mEq IN WATER 100ML 100 ML IV SCH ×2 (08:15→15:23)
[2023-11-22 09:22] LABS: Ferritin 186 ng/mL (17.9-464); Folate (Folic Acid) > 16.6 ng/mL (2.76 - >20); Vitamin B12 819 pg/mL (239-931)
[2023-11-22 11:15] LABS: IFOB TEST RESULTS NEGATIVE (NEGATIVE)
[2023-11-22] MEDS: Venofer 100 MG/5 ML*** 200 MG in Sodium Chloride 0.9% 100 ML IV SCH (11:19)
[2023-11-22] MEDS: HUMALOG SQ PRN (12:13)
[2023-11-22] MEDS: Flomax 0.4 MG PO SCH (14:08)
[2023-11-22] MEDS: Lactated Ringers 1,000 ML IV SCH (15:24)
[2023-11-22] MEDS: Klor Con PO ONE (22:17)
[2023-11-23 04:54] LABS: Absolute Neutrophil Ct (ANC) 6.51 x10^3/uL (1.78-5.38); BASOPHIL % 0.3 % (0.2-1.2); Basophil (Absolute #) 0.02 x10^3/uL (0.01-0.08); Eosinophil % 1.5 % (0.8-7.0); Eosinophil (Absolute #) 0.11 x10^3/uL (0.04-0.54); Hematocrit 27.6 % (40.1-51.0); Hemoglobin 9.7 g/dL (13.7-17.5); IMMATURE GRAN # 0.06 x10^3u/L (0.001-0.031); IMMATURE GRAN % 0.8 % (0.001-0.429); Lymphocyte (Absolute #) 0.62 x10^3/uL (1.32-3.57); Lymphocytes % 8.2 % (21.8-53.1); Mean Cell Volume 89.6 fL (79.0-92.2); Mean Corpuscular Hemoglobin 31.5 pg (25.7-32.2); Mean Corpuscular Hgb Concent. 35.1 g/dL (32.3-36.5); Mean Platelet Volume 10.1 fL (9.4-12.4); Monocyte (Absolute #) 0.24 x10^3/uL (0.30-0.82); Monocytes % 3.2 % (5.3-12.2); Platelet Count 116 x10^3/uL (163-337); Red Blood Count 3.08 x10^6/uL (4.63-6.08); Red Cell Distribution Width 13.9 % (11.6-14.4); White Blood Count 7.6 x10^3/uL (4.23-9.07)
[2023-11-23 05:04] LABS: ALBUMIN 3.2 g/dL (3.5-5.0); BILIRUBIN,TOTAL 0.4 mg/dL (0.2-1.3); Calcium 7.3 mg/dL (8.4-10.2); Creatinine 1 1.56 mg/dL (0.66-1.25); EST GLOMERULAR FILTRATION RATE 47.2 ML/MIN; MAGNESIUM 1.5 mg/dL (1.6-2.3); Potassium 3.4 mmol/L (3.5-5.1)
--- NOTE | 2023-11-23 05:07 | PCM.NOTE ---
Date and Time: 11/23/23 0508 Subjective Assessment: Mr. Dennis is a 73 year old male with a pmhx of cerebral palsy, peripheral neuropathy, seizures, CAD (s/p CABG), NH, DM, and GERD admitted 11/20/23 with sepsis of unknown etiology after experiencing about a week history of fever, chills, body aches, and dizziness. TMax of 104. CXR negative for acute findings. Lab findings remarkable for leukocytosis, KUMAR with creat at 1.9 on arrival (baseline 1.0), procal at 21.800,and elevated lactic at 2.1. Urinalysis and respiratory viral panel negative. Upon exam, patient noted with BLE edema/erythema as well as what appears to be a chronic wound on his right great toe. Patient was started on Ceftriaxone/doxy - will continue with vanc/zosyn. Will attempt to obtain cultures. Venous doppler Nonoccluding DVT right popliteal vein. Left leg negative for DVT. Will start eliquis 10mg bid x 7 days, 5mg bid there after. Echo pending. Xray of right foot negative for acute findings. 11/22/23: Met with patient bedside. Patient afebrile overnight. Endorses continued weakness and non-productive cough. He does report symptoms are improved. Discussed doppler findings showing DVT. Eliquis started. Wound cultures growing gram + organism. Labs with low potassium and magnesium this morning. Iron sat at 7%. Plan for continuation of antibiotic - follow cultures, replenish K+/Mg, and start venofer (most likely will have to continue infusions as OP). Patient did have some urinary retention and needed a michelle catheter placed. Will attempt to discontinue, may need urology OP if persistent. 11/23/23: No overnight events reported. Endorses improvement of weakness. Does report runny stools this morning - will obtain stool sample. Discussed wound culture showing Staph Aureus, sensitivity to vanc - will continue today and start levaquin tomorrow. Most likely will discharge to rehab tomorrow. - Review of Systems Constitutional: Fatigue, Weakness Eyes: No Symptoms Ears, Nose, & Throat: No Symptoms Respiratory: No Symptoms Cardiac: No Symptoms Abdominal/Gastrointestinal: Diarrhea Genitourinary Symptoms: Urinary Retention (FC) Musculoskeletal: No Symptoms Skin: Cellulitis Neurological: No Symptoms Psychological: No Symptoms Endocrine: No Symptoms Hematologic/Lymphatic: No Symptoms Immunological/Allergic: No Symptoms Objective Exam General Appearance: no apparent distress Neurologic Exam: alert, oriented x 3, cooperative Skin Exam: other (BLE with compression dressings Right great toe chronic wound) Eye Exam: PERRL Ears, Nose, Throat Exam: normal ENT inspection Neck Exam: normal inspection Respiratory Exam: normal breath sounds, lungs clear Cardiovascular Exam: regular rate/rhythm, normal heart sounds Gastrointestinal/Abdomen Exam: soft, other (hyperactive BS x 4 quads) Extremity Exam: normal inspection Back Exam: normal inspection Male Genitalia Exam: deferred Rectal Exam: deferred Objective Data Vital Signs: Vital Signs - 24 hr Temp Pulse Resp BP Pulse Ox 11/23/23 04:00 97.2 F 72 18 123/58 96 11/22/23 23:48 98.4 F 74 20 139/60 96 11/22/23 20:10 95 11/22/23 19:46 97.8 F 80 16 151/58 94 L 11/22/23 16:00 97 F 68 20 121/54 99 11/22/23 11:43 96.2 F 69 18 119/56 99 11/22/23 07:42 98.5 F 69 19 104/54 97 11/22/23 07:16 95 Pain Assessment - Last Documented Pain Intensity 0 Intake and Output: Intake & Output 11/20/23 11/21/23 11/22/23 11/23/23 11:59 11:59 11:59 11:59 Intake Total 1686 3285 4805 Output Total 2100 2025 Balance 1686 1185 2780 Weight 111.9 kg Lab Results: Lab Results-Last 24 Hours 11/21/23 11/22/23 11/22/23 Range/Units 05:00 04:07 04:07 WBC 9.0 (4.23-9.07) x10^3/uL RBC 3.03 L (4.63-6.08) x10^6/uL Hgb 9.4 L (13.7-17.5) g/dL Hct 27.7 L (40.1-51.0) % MCV 91.4 (79.0-92.2) fL MCH 31.0 (25.7-32.2) pg MCHC 33.9 (32.3-36.5) g/dL RDW 13.6 (11.6-14.4) % Plt Count 114 L (163-337) x10^3/uL MPV 9.8 (9.4-12.4) fL Gran % 86.9 H (34.0-67.9) % Immature Gran % (Auto) 1.1 H (0.001-0.429) % Nucleat RBC Rel Count 0.0 (0.00-0.2) % Eos # (Auto) 0.01 L (0.04-0.54) x10^3/uL Immature Gran # (Auto) 0.10 H (0.001-0.031) x10^3u/L Absolute Lymphs (auto) 0.84 L (1.32-3.57) x10^3/uL Absolute Monos (auto) 0.22 L (0.30-0.82) x10^3/uL Absolute Nucleated RBC 0.00 (0.00-0.012) x10^3u/L Lymphocytes % 9.3 L (21.8-53.1) % Monocytes % 2.4 L (5.3-12.2) % Eosinophils % 0.1 L (0.8-7.0) % Basophils % 0.2 (0.2-1.2) % Absolute Granulocytes 7.82 H (1.78-5.38) x10^3/uL Basophils # 0.02 (0.01-0.08) x10^3/uL Sodium 136 (135-145) mmol/L Potassium 2.5 L* D (3.5-5.1) mmol/L Chloride 105 (98-107) mmol/L Carbon Dioxide 21 L (22-30) mmol/L Anion Gap 11.9 (5-15) MEQ/L BUN 32 H (9-20) mg/dL Creatinine 1.64 H (0.66-1.25) mg/dL Estimated GFR 44.4 ML/MIN Glucose 70 L (74-106) mg/dL POC Glucometer (74 to 106) mg/dL Calcium 6.8 L (8.4-10.2) mg/dL Magnesium 0.7 L* (1.6-2.3) mg/dL Iron (49-181) ug/dL TIBC (261-497) ug/dL Iron Saturation (20-39) % Ferritin (17.9-464) ng/mL Total Bilirubin 0.30 (0.2-1.3) mg/dL AST 37 (17-59) U/L ALT 18 (0-50) U/L Alkaline Phosphatase 79 (38-126) U/L C-Reactive Prot, Quant 144 H (0-10) mg/L Serum Total Protein 5.6 L (6.3-8.2) g/dL Albumin 2.9 L (3.5-5.0) g/dL Vitamin B12 (239-931) pg/mL Folic Acid (2.76 - >20) ng/mL Procalcitonin (0.030-0.080) ng/mL Stl Occult Blood (IFOB) (NEGATIVE) 11/22/23 11/22/23 11/22/23 Range/Units 06:45 06:45 07:09 WBC (4.23-9.07) x10^3/uL RBC (4.63-6.08) x10^6/uL Hgb (13.7-17.5) g/dL Hct (40.1-51.0) % MCV (79.0-92.2) fL MCH (25.7-32.2) pg MCHC (32.3-36.5) g/dL RDW (11.6-14.4) % Plt Count (163-337) x10^3/uL MPV (9.4-12.4) fL Gran % (34.0-67.9) % Immature Gran % (Auto) (0.001-0.429) % Nucleat RBC Rel Count (0.00-0.2) % Eos # (Auto) (0.04-0.54) x10^3/uL Immature Gran # (Auto) (0.001-0.031) x10^3u/L Absolute Lymphs (auto) (1.32-3.57) x10^3/uL Absolute Monos (auto) (0.30-0.82) x10^3/uL Absolute Nucleated RBC (0.00-0.012) x10^3u/L Lymphocytes % (21.8-53.1) % Monocytes % (5.3-12.2) % Eosinophils % (0.8-7.0) % Basophils % (0.2-1.2) % Absolute Granulocytes (1.78-5.38) x10^3/uL Basophils # (0.01-0.08) x10^3/uL Sodium (135-145) mmol/L Potassium (3.5-5.1) mmol/L Chloride (98-107) mmol/L Carbon Dioxide (22-30) mmol/L Anion Gap (5-15) MEQ/L BUN (9-20) mg/dL Creatinine (0.66-1.25) mg/dL Estimated GFR ML/MIN Glucose (74-106) mg/dL POC Glucometer 61 L (74 to 106) mg/dL Calcium (8.4-10.2) mg/dL Magnesium (1.6-2.3) mg/dL Iron 15 L (49-181) ug/dL TIBC 204 L (261-497) ug/dL Iron Saturation 7 L (20-39) % Ferritin 186 (17.9-464) ng/mL Total Bilirubin (0.2-1.3) mg/dL AST (17-59) U/L ALT (0-50) U/L Alkaline Phosphatase (38-126) U/L C-Reactive Prot, Quant (0-10) mg/L Serum Total Protein (6.3-8.2) g/dL Albumin (3.5-5.0) g/dL Vitamin B12 819 (239-931) pg/mL Folic Acid > 16.6 (2.76 - >20) ng/mL Procalcitonin (0.030-0.080) ng/mL Stl Occult Blood (IFOB) (NEGATIVE) 11/22/23 11/22/23 11/22/23 Range/Units 07:36 09:44 11:36 WBC (4.23-9.07) x10^3/uL RBC (4.63-6.08) x10^6/uL Hgb (13.7-17.5) g/dL Hct (40.1-51.0) % MCV (79.0-92.2) fL MCH (25.7-32.2) pg MCHC (32.3-36.5) g/dL RDW (11.6-14.4) % Plt Count (163-337) x10^3/uL MPV (9.4-12.4) fL Gran % (34.0-67.9) % Immature Gran % (Auto) (0.001-0.429) % Nucleat RBC Rel Count (0.00-0.2) % Eos # (Auto) (0.04-0.54) x10^3/uL Immature Gran # (Auto) (0.001-0.031) x10^3u/L Absolute Lymphs (auto) (1.32-3.57) x10^3/uL Absolute Monos (auto) (0.30-0.82) x10^3/uL Absolute Nucleated RBC (0.00-0.012) x10^3u/L Lymphocytes % (21.8-53.1) % Monocytes % (5.3-12.2) % Eosinophils % (0.8-7.0) % Basophils % (0.2-1.2) % Absolute Granulocytes (1.78-5.38) x10^3/uL Basophils # (0.01-0.08) x10^3/uL Sodium (135-145) mmol/L Potassium (3.5-5.1) mmol/L Chloride (98-107) mmol/L Carbon Dioxide (22-30) mmol/L Anion Gap (5-15) MEQ/L BUN (9-20) mg/dL Creatinine (0.66-1.25) mg/dL Estimated GFR ML/MIN Glucose (74-106) mg/dL POC Glucometer 73 L 187 H (74 to 106) mg/dL Calcium (8.4-10.2) mg/dL Magnesium (1.6-2.3) mg/dL Iron (49-181) ug/dL TIBC (261-497) ug/dL Iron Saturation (20-39) % Ferritin (17.9-464) ng/mL Total Bilirubin (0.2-1.3) mg/dL AST (17-59) U/L ALT (0-50) U/L Alkaline Phosphatase (38-126) U/L C-Reactive Prot, Quant (0-10) mg/L Serum Total Protein (6.3-8.2) g/dL Albumin (3.5-5.0) g/dL Vitamin B12 (239-931) pg/mL Folic Acid (2.76 - >20) ng/mL Procalcitonin (0.030-0.080) ng/mL Stl Occult Blood (IFOB) NEGATIVE (NEGATIVE) 11/22/23 11/22/23 11/22/23 Range/Units 14:27 14:27 14:45 WBC (4.23-9.07) x10^3/uL RBC (4.63-6.08) x10^6/uL Hgb (13.7-17.5) g/dL Hct (40.1-51.0) % MCV (79.0-92.2) fL MCH (25.7-32.2) pg MCHC (32.3-36.5) g/dL RDW (11.6-14.4) % Plt Count (163-337) x10^3/uL MPV (9.4-12.4) fL Gran % (34.0-67.9) % Immature Gran % (Auto) (0.001-0.429) % Nucleat RBC Rel Count (0.00-0.2) % Eos # (Auto) (0.04-0.54) x10^3/uL Immature Gran # (Auto) (0.001-0.031) x10^3u/L Absolute Lymphs (auto) (1.32-3.57) x10^3/uL Absolute Monos (auto) (0.30-0.82) x10^3/uL Absolute Nucleated RBC (0.00-0.012) x10^3u/L Lymphocytes % (21.8-53.1) % Monocytes % (5.3-12.2) % Eosinophils % (0.8-7.0) % Basophils % (0.2-1.2) % Absolute Granulocytes (1.78-5.38) x10^3/uL Basophils # (0.01-0.08) x10^3/uL Sodium (135-145) mmol/L Potassium 2.9 L* (3.5-5.1) mmol/L Chloride (98-107) mmol/L Carbon Dioxide (22-30) mmol/L Anion Gap (5-15) MEQ/L BUN (9-20) mg/dL Creatinine (0.66-1.25) mg/dL Estimated GFR ML/MIN Glucose (74-106) mg/dL POC Glucometer (74 to 106) mg/dL Calcium (8.4-10.2) mg/dL Magnesium 1.5 L (1.6-2.3) mg/dL Iron (49-181) ug/dL TIBC (261-497) ug/dL Iron Saturation (20-39) % Ferritin (17.9-464) ng/mL Total Bilirubin (0.2-1.3) mg/dL AST (17-59) U/L ALT (0-50) U/L Alkaline Phosphatase (38-126) U/L C-Reactive Prot, Quant (0-10) mg/L Serum Total Protein (6.3-8.2) g/dL Albumin (3.5-5.0) g/dL Vitamin B12 (239-931) pg/mL Folic Acid (2.76 - >20) ng/mL Procalcitonin 14.100 H* (0.030-0.080) ng/mL Stl Occult Blood (IFOB) (NEGATIVE) 11/22/23 11/22/23 11/22/23 Range/Units 16:10 20:32 21:35 WBC (4.23-9.07) x10^3/uL RBC (4.63-6.08) x10^6/uL Hgb (13.7-17.5) g/dL Hct (40.1-51.0) % MCV (79.0-92.2) fL MCH (25.7-32.2) pg MCHC (32.3-36.5) g/dL RDW (11.6-14.4) % Plt Count (163-337) x10^3/uL MPV (9.4-12.4) fL Gran % (34.0-67.9) % Immature Gran % (Auto) (0.001-0.429) % Nucleat RBC Rel Count (0.00-0.2) % Eos # (Auto) (0.04-0.54) x10^3/uL Immature Gran # (Auto) (0.001-0.031) x10^3u/L Absolute Lymphs (auto) (1.32-3.57) x10^3/uL Absolute Monos (auto) (0.30-0.82) x10^3/uL Absolute Nucleated RBC (0.00-0.012) x10^3u/L Lymphocytes % (21.8-53.1) % Monocytes % (5.3-12.2) % Eosinophils % (0.8-7.0) % Basophils % (0.2-1.2) % Absolute Granulocytes (1.78-5.38) x10^3/uL Basophils # (0.01-0.08) x10^3/uL Sodium (135-145) mmol/L Potassium 3.0 L* (3.5-5.1) mmol/L Chloride (98-107) mmol/L Carbon Dioxide (22-30) mmol/L Anion Gap (5-15) MEQ/L BUN (9-20) mg/dL Creatinine (0.66-1.25) mg/dL Estimated GFR ML/MIN Glucose (74-106) mg/dL POC Glucometer 154 H 165 H (74 to 106) mg/dL Calcium (8.4-10.2) mg/dL Magnesium (1.6-2.3) mg/dL Iron (49-181) ug/dL TIBC (261-497) ug/dL Iron Saturation (20-39) % Ferritin (17.9-464) ng/mL Total Bilirubin (0.2-1.3) mg/dL AST (17-59) U/L ALT (0-50) U/L Alkaline Phosphatase (38-126) U/L C-Reactive Prot, Quant (0-10) mg/L Serum Total Protein (6.3-8.2) g/dL Albumin (3.5-5.0) g/dL Vitamin B12 (239-931) pg/mL Folic Acid (2.76 - >20) ng/mL Procalcitonin (0.030-0.080) ng/mL Stl Occult Blood (IFOB) (NEGATIVE) 11/23/23 Range/Units 04:13 WBC 7.6 (4.23-9.07) x10^3/uL RBC 3.08 L (4.63-6.08) x10^6/uL Hgb 9.7 L (13.7-17.5) g/dL Hct 27.6 L (40.1-51.0) % MCV 89.6 (79.0-92.2) fL MCH 31.5 (25.7-32.2) pg MCHC 35.1 (32.3-36.5) g/dL RDW 13.9 (11.6-14.4) % Plt Count 116 L (163-337) x10^3/uL MPV 10.1 (9.4-12.4) fL Gran % 86.0 H (34.0-67.9) % Immature Gran % (Auto) 0.8 H (0.001-0.429) % Nucleat RBC Rel Count 0.0 (0.00-0.2) % Eos # (Auto) 0.11 (0.04-0.54) x10^3/uL Immature Gran # (Auto) 0.06 H (0.001-0.031) x10^3u/L Absolute Lymphs (auto) 0.62 L (1.32-3.57) x10^3/uL Absolute Monos (auto) 0.24 L (0.30-0.82) x10^3/uL Absolute Nucleated RBC 0.00 (0.00-0.012) x10^3u/L Lymphocytes % 8.2 L (21.8-53.1) % Monocytes % 3.2 L (5.3-12.2) % Eosinophils % 1.5 (0.8-7.0) % Basophils % 0.3 (0.2-1.2) % Absolute Granulocytes 6.51 H (1.78-5.38) x10^3/uL Basophils # 0.02 (0.01-0.08) x10^3/uL Sodium (135-145) mmol/L Potassium (3.5-5.1) mmol/L Chloride (98-107) mmol/L Carbon Dioxide (22-30) mmol/L Anion Gap (5-15) MEQ/L BUN (9-20) mg/dL Creatinine (0.66-1.25) mg/dL Estimated GFR ML/MIN Glucose (74-106) mg/dL POC Glucometer (74 to 106) mg/dL Calcium (8.4-10.2) mg/dL Magnesium (1.6-2.3) mg/dL Iron (49-181) ug/dL TIBC (261-497) ug/dL Iron Saturation (20-39) % Ferritin (17.9-464) ng/mL Total Bilirubin (0.2-1.3) mg/dL AST (17-59) U/L ALT (0-50) U/L Alkaline Phosphatase (38-126) U/L C-Reactive Prot, Quant (0-10) mg/L Serum Total Protein (6.3-8.2) g/dL Albumin (3.5-5.0) g/dL Vitamin B12 (239-931) pg/mL Folic Acid (2.76 - >20) ng/mL Procalcitonin (0.030-0.080) ng/mL Stl Occult Blood (IFOB) (NEGATIVE) Radiology Exams: Radiology Procedures Category Date Time Status ECHO W/2D AND DOPPLER [US] Routine Exams 11/21/23 12:04 Taken FOOT (MINIMUM 3 VIEWS) Routine Exams 11/21/23 12:04 Completed VENOUS BILATERAL EXTREMITY [US] Stat Exams 11/21/23 12:04 Completed Multi-Disciplinary Progress Notes: Multi-Disciplinary Progress Notes 11/22/23 14:36 Case Management Note by Bonny Peraza PAPERWORK INITIATED AT THIS TIME, PATIENT WOULD LIKE TO GO TO [facility] Initialized on 11/22/23 14:36 - END OF NOTE 11/22/23 12:45 Case Management Note by Bonny Peraza S/W PATIENT ABOUT A REHAB STAY- PATIENT FEELS THIS WOULD BE BEST PRIOR TO RETURNING HOME WHERE HE LIVES ON HIS OWN. PATIENT TO DISCUSS FACILITY OPTIONS WITH BROTHER. Initialized on 11/22/23 12:45 - END OF NOTE Assessment/Plan (1) Sepsis Current Visit: Yes Status: Acute Assessment & Plan: (1) Sepsis Current Visit: Yes Status: Acute Assessment & Plan: -Most likely source of infection -cellulitis of LLE -UA/ CXR WNL -LA elevated at 2.1- trend -Procal elevated at 21.8 -Blood and urine cultures pending -Supplemental oxygen with goal spo2 >92% - at RA which is baseline -Vanc/zosyn - started 11/21/23 -antimicrobal history -Doxycycline/ceftriaxone 7/21/21 -discontinued -culture wound if able -UA/CXR negative -PPI -Lovenox -febrile today at 101.1 -hypotensive overnight - midodrine started, stable 11/22/23 -no longer meets criteria -WBC WNL, vitals stable, LA wnl -Wound culture with gram + ID- will follow- continue vanc/zosyn for now (2) Cellulitis of left lower extremity Current Visit: Yes Status: Acute Code(s): L03.116 - CELLULITIS OF LEFT LOWER LIMB -wound cult with gram + ID, most likely source of infection-vanc/zosyn - follow culture -podiatry following -Unna boot applied to bilateral lower extremity 11/22: -Wound culture with staph aureus- continue vanc x 1 more day, then levaquin oral on discharge (3) Acute kidney injury Current Visit: Yes Status: Acute Assessment & Plan: -baseline wnl -improving at 1.78<1.90 -AVOID LYNN/ARB/diurectics/NSAIDS -Monitor renal/lytes daily -gentle hydration 11/22/23 -Improving- continue hydration Code(s): N17.9 - ACUTE KIDNEY FAILURE, UNSPECIFIED (4) Cerebral palsy Current Visit: Yes Status: Acute Assessment & Plan: -Noted- adds complexity Code(s): G80.9 - CEREBRAL PALSY, UNSPECIFIED (5) Dizziness Current Visit: Yes Status: Acute Assessment & Plan: -most likely secondary to illness -improved today -ortho vitals -echo -tele -midodrine started, will continue Code(s): R42 - DIZZINESS AND GIDDINESS (6) Type 2 diabetes mellitus -ADA diet -SSI (8) DVT -DVT nonoccluding right popiteal -Eliquis initiated 10mg bid x 7 days, 5mg bid there after (9) Anemia -chronic -iron profile -PPI -occult stools 11/22/23: -iron sat at 7% - will start venofer (10) Hypokalemia - K+ at 2.5- will replenish 11/22: -improving at 3.4, will replenish per protocol (11)Hypomagnesemia -Mg at 0.7, will replenish 11/22: -improving at 1.5 - replenish (12) Urinary Retention -bladder scan showing 800ml retention, patient straight cath and later had > 300ml retention, F/C placed -Flomax -Will attempt to d/c michelle- if unable will set up with urology OP 11/23/23: -DC michelle- bladder scan if patient unable to urinate VTE:Eliquis PPI: protonix Code status: Full code Dispo 2-3 days (2) Cellulitis of left lower extremity Current Visit: Yes Status: Acute Code(s): L03.116 - CELLULITIS OF LEFT LOWER LIMB (3) Acute kidney injury Current Visit: Yes Status: Acute Code(s): N17.9 - ACUTE KIDNEY FAILURE, UNSPECIFIED (4) Cerebral palsy Current Visit: Yes Status: Acute Code(s): G80.9 - CEREBRAL PALSY, UNSPECIFIED (5) Dizziness Current Visit: Yes Status: Acute Code(s): R42 - DIZZINESS AND GIDDINESS (6) Deep vein thrombosis (DVT) of popliteal vein of right lower extremity Current Visit: Yes Status: Acute Code(s): I82.431 - ACUTE EMBOLISM AND THROMBOSIS OF RIGHT POPLITEAL VEIN (7) Type 2 diabetes mellitus Current Visit: Yes Status: Acute (8) Anemia Current Visit: Yes Status: Acute Code(s): D64.9 - ANEMIA, UNSPECIFIED (9) Hypokalemia Current Visit: Yes Status: Acute Code(s): E87.6 - HYPOKALEMIA (10) Hypomagnesemia Current Visit: Yes Status: Acute Code(s): E83.42 - HYPOMAGNESEMIA (11) Urinary retention Current Visit: Yes Status: Acute Code(s): R33.9 - RETENTION OF URINE, UNSPECIFIED
[2023-11-23] MEDS: Magnesium 1 Gm / 100 Ml D5W*** 100 ML IV SCH (05:46)
[2023-11-23] MEDS: Klor Con PO ONE (05:46)
[2023-11-23] MEDS: TROUGH DRUG LEVELS IJ ONE (09:41)
[2023-11-23] MEDS: Glucotrol 5 MG PO SCH (11:50)
[2023-11-23] MEDS: HUMALOG SQ PRN (11:50)
[2023-11-23 12:20] LABS: MAGNESIUM 1.7 mg/dL (1.6-2.3); Potassium 3.3 mmol/L (3.5-5.1)
[2023-11-23 14:58] LABS: 027 TOX PROD PRESUMPTIVE NEGATIVE (NEGATIVE); TOXIGENIC C. DIFF ORG NEGATIVE (NEGATIVE)
[2023-11-23] MEDS: Klor Con PO SCH (16:30)
[2023-11-24 05:30] LABS: Absolute Neutrophil Ct (ANC) 5.02 x10^3/uL (1.78-5.38); BASOPHIL % 0.3 % (0.2-1.2); Basophil (Absolute #) 0.02 x10^3/uL (0.01-0.08); Eosinophil % 2.1 % (0.8-7.0); Eosinophil (Absolute #) 0.13 x10^3/uL (0.04-0.54); Hematocrit 26.7 % (40.1-51.0); Hemoglobin 9.2 g/dL (13.7-17.5); IMMATURE GRAN # 0.05 x10^3u/L (0.001-0.031); IMMATURE GRAN % 0.8 % (0.001-0.429); Lymphocytes % 11.3 % (21.8-53.1); Mean Cell Volume 91.1 fL (79.0-92.2); Mean Corpuscular Hemoglobin 31.4 pg (25.7-32.2); Mean Corpuscular Hgb Concent. 34.5 g/dL (32.3-36.5); Mean Platelet Volume 10.1 fL (9.4-12.4); Monocyte (Absolute #) 0.26 x10^3/uL (0.30-0.82); Monocytes % 4.2 % (5.3-12.2); Neutrophil % 81.3 % (34.0-67.9); Platelet Count 110 x10^3/uL (163-337); Red Blood Count 2.93 x10^6/uL (4.63-6.08); Red Cell Distribution Width 13.6 % (11.6-14.4); White Blood Count 6.2 x10^3/uL (4.23-9.07)
--- NOTE | 2023-11-24 05:34 | PCM.DS ---
Discharge Summary Date of Admission: 11/21/23 09:54 Date of Discharge: 11/24/23 Admitting Physician: MONIQUE VIVAR MD Consults: Consults on Case 11/21/23 14:59 Consult Podiatry ROUTINE Primary Care Provider: KEVAN JUSTIN Allergies Allergies No Known Allergies Allergy (Mild, Verified 12/07/14 18:10) Hospital Summary - Hospital Course Hospital Course: Mr. Dennis is a 73 year old male with a pmhx of cerebral palsy, peripheral neuropathy, seizures, CAD (s/p CABG), NV, DM, and GERD admitted 11/20/23 with sepsis of unknown etiology after experiencing about a week history of fever, chills, body aches, and dizziness. TMax of 104. CXR negative for acute findings. Lab findings remarkable for leukocytosis, KUMAR with creat at 1.9 on arrival (baseline 1.0), procal at 21.800,and elevated lactic at 2.1. Urinalysis and respiratory viral panel negative. Upon exam, patient noted with BLE edema/e rythema as well as what appears to be a chronic wound on his right great toe - most likely source of infection. Xray of right foot of right foot demonstrates osteopenia, mild 1st MTP degenerative changes, spurring posterior/plantar calcaneus, spurring base 5th metatarsal, and extensive scattered vascular calcifications. No other bony, articular, or soft tissue abnormalities. Cultures with staph aureus. Antimicrobial history: Ceftriaxone/doxy (11/20/23), Vanc (11/21/23-11/23/23) Zosyn 11/21/23-11/23/23), and levaquin (11/24/23). Cultures with staph aureus. Podiatry consulted - Unna boot applied to bilateral lower extremity- will follow as OP. Venous doppler Nonoccluding DVT right popliteal vein. Left leg negative for DVT. Will start eliquis 10mg bid x 7 days, 5mg bid there after. KUMAR resolved. Patient to discharge to SNF on Levaquin Discharge Note New Diagnosis: Cellulitis New Medications: Eliquis, levaquin, midodrine Follow Up: pcp/podiatry Latest Assessment & Plan (1) Sepsis Current Visit: Yes Status: Acute Assessment & Plan: -Most likely source of infection -cellulitis of LLE -UA/ CXR WNL -LA elevated at 2.1- trend -Procal elevated at 21.8 -Blood and urine cultures pending -Supplemental oxygen with goal spo2 >92% - at RA which is baseline -Vanc/zosyn - started 11/21/23 -antimicrobal history -Doxycycline/ceftriaxone 11/19/20 -discontinued -culture wound if able -UA/CXR negative -PPI -Lovenox -febrile today at 101.1 -hypotensive overnight - midodrine started, stable 11/22/23 -no longer meets criteria -WBC WNL, vitals stable, LA wnl -Wound culture with gram + ID- will follow- continue vanc/zosyn for now (2) Cellulitis of left lower extremity Current Visit: Yes Status: Acute Code(s): L03.116 - CELLULITIS OF LEFT LOWER LIMB -wound cult with gram + ID, most likely source of infection-vanc/zosyn - follow culture -podiatry following -Unna boot applied to bilateral lower extremity 11/22: -Wound culture with staph aureus- continue vanc x 1 more day, then levaquin oral on discharge 11/24/23: -Follow up with ID at [facility] (3) Acute kidney injury Current Visit: Yes Status: Acute Assessment & Plan: -baseline wnl -improving at 1.78<1.90 -AVOID LYNN/ARB/diurectics/NSAIDS -Monitor renal/lytes daily -gentle hydration 11/22/23 -Improving- continue hydration 11/23: -resolved Code(s): N17.9 - ACUTE KIDNEY FAILURE, UNSPECIFIED (4) Cerebral palsy Current Visit: Yes Status: Acute Assessment & Plan: -Noted- adds complexity Code(s): G80.9 - CEREBRAL PALSY, UNSPECIFIED (5) Dizziness Current Visit: Yes Status: Acute Assessment & Plan: -most likely secondary to illness -improved today -ortho vitals -echo -tele -midodrine started, will continue Code(s): R42 - DIZZINESS AND GIDDINESS (6) Type 2 diabetes mellitus -ADA diet -SSI (8) DVT -DVT nonoccluding right popiteal -Eliquis initiated 10mg bid x 7 days, 5mg bid there after (9) Anemia -chronic -iron profile -PPI -occult stools 11/22/23: -iron sat at 7% - will start venofer 11/23: -Follow up with heme OP - ferrous sulfate (10) Hypokalemia - K+ at 2.5- will replenish 11/22: -improving at 3.4, will replenish per protocol 11/23: -resolved (11)Hypomagnesemia -Mg at 0.7, will replenish 11/22: -improving at 1.5 - replenish 11/23 -Resolved (12) Urinary Retention -bladder scan showing 800ml retention, patient straight cath and later had > 300ml retention, F/C placed -Flomax -Will attempt to d/c michelle- if unable will set up with urology OP 11/23/23: -DC michelle- bladder scan if patient unable to urinate 11/23: -Michelle removed, urinating appropriately- continue flomax VTE:Eliquis PPI: protonix Code status: Full code Dispo 2-3 days I spent 35 minutes [id number] with the patient on the day of discharge performing discharge exam, discussing hospital stay and discharge instructions with patient and caregivers, preparation of discharge records, prescriptions & referral forms and addressing any questions/concerns the patient had as documented above. - Vitals & Intake/Output Vital Signs: Vital Signs Temperature 97.9 F 11/24/23 03:53 Pulse Rate 80 11/24/23 03:53 Respiratory Rate 18 11/24/23 03:53 Blood Pressure 134/62 11/24/23 03:53 O2 Sat by Pulse Oximetry 96 11/24/23 03:53 Intake & Output: Intake & Output 11/21/23 11/22/23 11/23/23 11/24/23 11:59 11:59 11:59 11:59 Intake Total 1686 3285 5045 3208 Output Total 2100 2525 950 Balance 1686 1185 2520 2258 Weight 111.9 kg 111.9 kg - Lab Result Diagrams: 11/24/23 04:42 11/24/23 04:42 Lab Results-Last 24 Hrs: Lab Results-Last 24 Hours 11/23/23 11/23/23 11/23/23 Range/Units 04:13 07:08 09:25 Sodium 138 (135-145) mmol/L Potassium 3.4 L (3.5-5.1) mmol/L Chloride 107 (98-107) mmol/L Carbon Dioxide 21 L (22-30) mmol/L Anion Gap 13.0 (5-15) MEQ/L BUN 25 H (9-20) mg/dL Creatinine 1.56 H (0.66-1.25) mg/dL Estimated GFR 47.2 ML/MIN Glucose 132 H (74-106) mg/dL POC Glucometer 137 H (74 to 106) mg/dL Calcium 7.3 L (8.4-10.2) mg/dL Magnesium 1.5 L (1.6-2.3) mg/dL Total Bilirubin 0.40 (0.2-1.3) mg/dL AST 33 (17-59) U/L ALT 20 (0-50) U/L Alkaline Phosphatase 91 (38-126) U/L Serum Total Protein 6.0 L (6.3-8.2) g/dL Albumin 3.2 L (3.5-5.0) g/dL Vancomycin Trough 14.70 (10-20) ug/mL C. difficile Screen (NEGATIVE) C.difficile 027-NAP1-B1 (NEGATIVE) 11/23/23 11/23/23 11/23/23 Range/Units 11:36 12:00 14:15 Sodium (135-145) mmol/L Potassium 3.3 L (3.5-5.1) mmol/L Chloride (98-107) mmol/L Carbon Dioxide (22-30) mmol/L Anion Gap (5-15) MEQ/L BUN (9-20) mg/dL Creatinine (0.66-1.25) mg/dL Estimated GFR ML/MIN Glucose (74-106) mg/dL POC Glucometer 252 H (74 to 106) mg/dL Calcium (8.4-10.2) mg/dL Magnesium 1.7 (1.6-2.3) mg/dL Total Bilirubin (0.2-1.3) mg/dL AST (17-59) U/L ALT (0-50) U/L Alkaline Phosphatase (38-126) U/L Serum Total Protein (6.3-8.2) g/dL Albumin (3.5-5.0) g/dL Vancomycin Trough (10-20) ug/mL C. difficile Screen NEGATIVE (NEGATIVE) C.difficile 027-NAP1-B1 PRESUMPTIVE NEGATIVE (NEGATIVE) 07/11/23/23 11/23/23 Range/Units 15:49 16:20 20:05 Sodium (135-145) mmol/L Potassium 3.4 L 3.5 (3.5-5.1) mmol/L Chloride (98-107) mmol/L Carbon Dioxide (22-30) mmol/L Anion Gap (5-15) MEQ/L BUN (9-20) mg/dL Creatinine (0.66-1.25) mg/dL Estimated GFR ML/MIN Glucose (74-106) mg/dL POC Glucometer 216 H (74 to 106) mg/dL Calcium (8.4-10.2) mg/dL Magnesium (1.6-2.3) mg/dL Total Bilirubin (0.2-1.3) mg/dL AST (17-59) U/L ALT (0-50) U/L Alkaline Phosphatase (38-126) U/L Serum Total Protein (6.3-8.2) g/dL Albumin (3.5-5.0) g/dL Vancomycin Trough (10-20) ug/mL C. difficile Screen (NEGATIVE) C.difficile 027-NAP1-B1 (NEGATIVE) 11/23/23 11/24/23 Range/Units 20:59 00:51 Sodium (135-145) mmol/L Potassium 3.7 (3.5-5.1) mmol/L Chloride (98-107) mmol/L Carbon Dioxide (22-30) mmol/L Anion Gap (5-15) MEQ/L BUN (9-20) mg/dL Creatinine (0.66-1.25) mg/dL Estimated GFR ML/MIN Glucose (74-106) mg/dL POC Glucometer 194 H (74 to 106) mg/dL Calcium (8.4-10.2) mg/dL Magnesium (1.6-2.3) mg/dL Total Bilirubin (0.2-1.3) mg/dL AST (17-59) U/L ALT (0-50) U/L Alkaline Phosphatase (38-126) U/L Serum Total Protein (6.3-8.2) g/dL Albumin (3.5-5.0) g/dL Vancomycin Trough (10-20) ug/mL C. difficile Screen (NEGATIVE) C.difficile 027-NAP1-B1 (NEGATIVE) Micro Results-Entire Visit: Microbiology 11/21/23 20:35 Urine Culture - Final Urine, Indwelling Catheter NO GROWTH 11/21/23 13:21 Wound Culture - Final Leg - Left Lower Staphylococcus Aureus 11/20/23 15:34 Blood Culture - Preliminary Blood 11/20/23 15:24 Blood Culture - Preliminary Blood Accuchecks Date 11/23/23 Date 11/23/23 Date 11/23/23 - Procedures and Test Procedures and Tests throughout Hospitalization: Therapy Orders & Screens 11/20/23 20:52 BiPap/CPAP ROUTINE Comment: Diagnosis: Sepsis, febrile illness 11/20/23 21:48 RT Screen per Nursing Assess ONCE Comment: Protocol Order Physician Instructions: Greater than 3 points order RT Admission Screen Reason For Exam: Triggered on Admission Diagnosis: Sepsis, febrile illness Diagnosis: Sepsis, febrile illness Pneumonia: No Home O2: No Asthma: No CHF: Yes Home CPAP/BIPAP: Yes Home Nebs/MDI: No Total Points: 8 11/21/23 13:57 PT Eval & Treat (MD Order) ONCE Reason for Eval:: weakness Diagnosis: Sepsis, febrile illness Discharge Exam General Appearance: no apparent distress Neurologic Exam: alert, oriented x 3, cooperative Eye Exam: PERRL Ears, Nose, Throat Exam: normal ENT inspection Neck Exam: normal inspection Respiratory Exam: normal breath sounds, lungs clear Cardiovascular Exam: regular rate/rhythm, normal heart sounds Gastrointestinal/Abdomen Exam: soft, normal bowel sounds Male Genitalia Exam: deferred Rectal Exam: deferred Back Exam: normal inspection Extremity Exam: other (BLE edema -compression dressings) Final Diagnosis/Problem List - Final Discharge Diagnosis/Problem (1) Sepsis Current Visit: Yes Status: Resolved (2) Cellulitis of left lower extremity Current Visit: Yes Status: Acute Code(s): L03.116 - CELLULITIS OF LEFT LOWER LIMB (3) Acute kidney injury Current Visit: Yes Status: Resolved Code(s): N17.9 - ACUTE KIDNEY FAILURE, UNSPECIFIED (4) Cerebral palsy Current Visit: Yes Status: Chronic Code(s): G80.9 - CEREBRAL PALSY, UNSPECIFIED (5) Dizziness Current Visit: Yes Status: Resolved Code(s): R42 - DIZZINESS AND GIDDINESS (6) Deep vein thrombosis (DVT) of popliteal vein of right lower extremity Current Visit: Yes Status: Chronic Code(s): I82.431 - ACUTE EMBOLISM AND THROMBOSIS OF RIGHT POPLITEAL VEIN (7) Type 2 diabetes mellitus Current Visit: Yes Status: Chronic (8) Anemia Current Visit: Yes Status: Chronic Code(s): D64.9 - ANEMIA, UNSPECIFIED (9) Hypokalemia Current Visit: Yes Status: Resolved Code(s): E87.6 - HYPOKALEMIA (10) Hypomagnesemia Current Visit: Yes Status: Resolved Code(s): E83.42 - HYPOMAGNESEMIA (11) Urinary retention Current Visit: Yes Status: Resolved Code(s): R33.9 - RETENTION OF URINE, UNSPECIFIED - Discharge Disposition: DC TO ANY "OTHER" SENIOR LIVING Condition: Stable Prescriptions: New calcitrioL 0.5 mcg PO DAILY cap Docusate Sodium 100 mg [Docusate Sodium 100 MG] 100 mg PO BIDPRN PRN cap PRN Reason: Constipation Ferrous Sulfate 325 mg [Feosol 325 mg] 325 mg PO DAILY 30 Days #30 tablet Tamsulosin HCl 0.4 mg [Flomax 0.4 MG] 0.4 mg PO DAILY cap Glipizide 5 mg [Glucotrol 5 MG] 5 mg PO DAILY tablet levoFLOXacin [Levofloxacin] 750 mg PO DAILY 10 Days #10 tablet Potassium Chloride 20 meq PO DAILY 30 Days #30 tablet Midodrine HCl [Proamatine] 5 mg PO TID@0600,1100,1600 tablet PANTOPRAZOLE 40 mg Tablet [Protonix 40MG Tablet] 40 mg PO DAILY tablet Sodium Bicarbonate 650 mg PO BID 3 Days #6 tablet Apixaban [Eliquis 2.5 mg Tablet] 10 mg PO BID tablet Continue Furosemide 40 mg [Lasix 40 MG] 40 mg PO DAILY carvediloL [Carvedilol] 6.25 mg PO BID Oxycodone HCl 5 mg Ir [Oxy-IR 5 MG] 5 mg PO Q4H PRN PRN PRN Reason: Pain Metformin HCl [Metformin HCl ER] 750 mg PO BID Clopidogrel Bisulfate [Clopidogrel] 75 mg PO DAILY Phenytoin Sodium Extended 200 mg PO BID Nitroglycerin 0.4 mg (Ed) [Nitrostat 0.4 MG (ED)] 1 tab SL Q5MIN PRN MR X 3 PRN PRN Reason: Chest Pain Levothyroxine Sodium 50 Mcg [Synthroid 50 Mcg] 1 tab PO DAILY Isosorbide Mononitrate 30 mg [Imdur 30 MG] 1 tab PO DAILY Gabapentin [Neurontin ] 1 tab PO TID Folic Acid 400 mcg PO DAILY Cyanocobalamin (Vitamin B-12) [B-12] 1 tab PO DAILY Buspirone HCl 15 mg PO TID Atorvastatin Calcium 1 tab PO HS Ramipril 1.25 mg [Altace 1.25 MG] 1 tab PO DAILY Discontinued Tamsulosin HCl 0.4 mg [Flomax 0.4 MG] 0.4 mg PO DAILY PANTOPRAZOLE 40 mg Tablet [Protonix 40MG Tablet] 40 mg PO DAILY Glipizide 5 mg [Glucotrol 5 MG] 5 mg PO DAILY Potassium Chloride 1 tab PO BID calcitrioL [Calcitriol] 1 tab PO DAILY Additional Instructions: DR GRULLON TO SEND DRESSING CHANGE ORDERS TO [facility] DIRECTLY/PLEASE CALL HIS OFFICE IF NOT RECEIVED DIET: 1800 CONSISTENT CARB DIET PT/OT EVAL AND TREAT ACCU CHECKS AC/HS C-PAP AT HS PER HOME USE SEE ATTACHED MED LIST Follow up with: KEVAN JUSTIN [Primary Care Provider] -
[2023-11-24 06:15] LABS: ALBUMIN 2.7 g/dL (3.5-5.0); ANION GAP 10.6 MEQ/L (5-15); BILIRUBIN,TOTAL 0.3 mg/dL (0.2-1.3); Calcium 7.7 mg/dL (8.4-10.2); Creatinine 1 1.03 mg/dL (0.66-1.25); EST GLOMERULAR FILTRATION RATE 77.7 ML/MIN; MAGNESIUM 1.7 mg/dL (1.6-2.3); Potassium 3.6 mmol/L (3.5-5.1); Total Protein 5.5 g/dL (6.3-8.2)
[2023-11-24 07:14] VITALS: O2SAT 96
[2023-11-24] MEDS: SODIUM BICARBONATE PO SCH (09:10)
[2023-11-24] MEDS: Levofloxacin 500 MG Tablet PO SCH (09:11)
[2023-11-24 11:33] VITALS: BP 119/56; PULSE 77; RESP 17; TEMP 97.1
--- NOTE | 2023-11-24 12:38 | PCM.NOTE ---
Date and Time: 11/24/23 1237 Subjective Assessment: doing well at chairside today. Anticipating discharge this afternoon. Physical Exam - Narrative Narrative Physical Exam: Podiatry Physical Exam Objective Data Vital Signs: Vital Signs - 24 hr Temp Pulse Resp BP Pulse Ox 11/24/23 11:32 97.1 F 77 17 119/56 96 11/24/23 07:14 96 11/24/23 07:01 97.5 F 85 14 130/60 95 11/24/23 03:53 97.9 F 80 18 134/62 96 11/24/23 00:00 72 18 134/64 98 11/23/23 20:23 95 11/23/23 19:47 97.7 F 83 18 130/60 95 11/23/23 16:00 97.9 F 65 18 131/62 95 Pain Assessment - Last Documented Pain Intensity 0 Intake and Output: Intake & Output 11/22/23 11/23/23 11/24/23 11/25/23 11:59 11:59 11:59 11:59 Intake Total 3285 5045 3488 Output Total 2100 2525 1550 Balance 1185 2520 1938 Weight 111.9 kg Lab Results: Lab Results-Last 24 Hours 11/23/23 11/23/23 11/23/23 Range/Units 14:15 15:49 16:20 WBC (4.23-9.07) x10^3/uL RBC (4.63-6.08) x10^6/uL Hgb (13.7-17.5) g/dL Hct (40.1-51.0) % MCV (79.0-92.2) fL MCH (25.7-32.2) pg MCHC (32.3-36.5) g/dL RDW (11.6-14.4) % Plt Count (163-337) x10^3/uL MPV (9.4-12.4) fL Gran % (34.0-67.9) % Immature Gran % (Auto) (0.001-0.429) % Nucleat RBC Rel Count (0.00-0.2) % Eos # (Auto) (0.04-0.54) x10^3/uL Immature Gran # (Auto) (0.001-0.031) x10^3u/L Absolute Lymphs (auto) (1.32-3.57) x10^3/uL Absolute Monos (auto) (0.30-0.82) x10^3/uL Absolute Nucleated RBC (0.00-0.012) x10^3u/L Lymphocytes % (21.8-53.1) % Monocytes % (5.3-12.2) % Eosinophils % (0.8-7.0) % Basophils % (0.2-1.2) % Absolute Granulocytes (1.78-5.38) x10^3/uL Basophils # (0.01-0.08) x10^3/uL Sodium (135-145) mmol/L Potassium 3.4 L (3.5-5.1) mmol/L Chloride (98-107) mmol/L Carbon Dioxide (22-30) mmol/L Anion Gap (5-15) MEQ/L BUN (9-20) mg/dL Creatinine (0.66-1.25) mg/dL Estimated GFR ML/MIN Glucose (74-106) mg/dL POC Glucometer 216 H (74 to 106) mg/dL Calcium (8.4-10.2) mg/dL Magnesium (1.6-2.3) mg/dL Total Bilirubin (0.2-1.3) mg/dL AST (17-59) U/L ALT (0-50) U/L Alkaline Phosphatase (38-126) U/L Serum Total Protein (6.3-8.2) g/dL Albumin (3.5-5.0) g/dL C. difficile Screen NEGATIVE (NEGATIVE) C.difficile 027-NAP1-B1 PRESUMPTIVE NEGATIVE (NEGATIVE) 11/23/23 11/23/23 11/24/23 Range/Units 20:05 20:59 00:51 WBC (4.23-9.07) x10^3/uL RBC (4.63-6.08) x10^6/uL Hgb (13.7-17.5) g/dL Hct (40.1-51.0) % MCV (79.0-92.2) fL MCH (25.7-32.2) pg MCHC (32.3-36.5) g/dL RDW (11.6-14.4) % Plt Count (163-337) x10^3/uL MPV (9.4-12.4) fL Gran % (34.0-67.9) % Immature Gran % (Auto) (0.001-0.429) % Nucleat RBC Rel Count (0.00-0.2) % Eos # (Auto) (0.04-0.54) x10^3/uL Immature Gran # (Auto) (0.001-0.031) x10^3u/L Absolute Lymphs (auto) (1.32-3.57) x10^3/uL Absolute Monos (auto) (0.30-0.82) x10^3/uL Absolute Nucleated RBC (0.00-0.012) x10^3u/L Lymphocytes % (21.8-53.1) % Monocytes % (5.3-12.2) % Eosinophils % (0.8-7.0) % Basophils % (0.2-1.2) % Absolute Granulocytes (1.78-5.38) x10^3/uL Basophils # (0.01-0.08) x10^3/uL Sodium (135-145) mmol/L Potassium 3.5 3.7 (3.5-5.1) mmol/L Chloride (98-107) mmol/L Carbon Dioxide (22-30) mmol/L Anion Gap (5-15) MEQ/L BUN (9-20) mg/dL Creatinine (0.66-1.25) mg/dL Estimated GFR ML/MIN Glucose (74-106) mg/dL POC Glucometer 194 H (74 to 106) mg/dL Calcium (8.4-10.2) mg/dL Magnesium (1.6-2.3) mg/dL Total Bilirubin (0.2-1.3) mg/dL AST (17-59) U/L ALT (0-50) U/L Alkaline Phosphatase (38-126) U/L Serum Total Protein (6.3-8.2) g/dL Albumin (3.5-5.0) g/dL C. difficile Screen (NEGATIVE) C.difficile 027-NAP1-B1 (NEGATIVE) 11/24/23 11/24/23 11/24/23 Range/Units 04:42 04:42 06:52 WBC 6.2 (4.23-9.07) x10^3/uL RBC 2.93 L (4.63-6.08) x10^6/uL Hgb 9.2 L (13.7-17.5) g/dL Hct 26.7 L (40.1-51.0) % MCV 91.1 (79.0-92.2) fL MCH 31.4 (25.7-32.2) pg MCHC 34.5 (32.3-36.5) g/dL RDW 13.6 (11.6-14.4) % Plt Count 110 L (163-337) x10^3/uL MPV 10.1 (9.4-12.4) fL Gran % 81.3 H (34.0-67.9) % Immature Gran % (Auto) 0.8 H (0.001-0.429) % Nucleat RBC Rel Count 0.0 (0.00-0.2) % Eos # (Auto) 0.13 (0.04-0.54) x10^3/uL Immature Gran # (Auto) 0.05 H (0.001-0.031) x10^3u/L Absolute Lymphs (auto) 0.70 L (1.32-3.57) x10^3/uL Absolute Monos (auto) 0.26 L (0.30-0.82) x10^3/uL Absolute Nucleated RBC 0.00 (0.00-0.012) x10^3u/L Lymphocytes % 11.3 L (21.8-53.1) % Monocytes % 4.2 L (5.3-12.2) % Eosinophils % 2.1 (0.8-7.0) % Basophils % 0.3 (0.2-1.2) % Absolute Granulocytes 5.02 (1.78-5.38) x10^3/uL Basophils # 0.02 (0.01-0.08) x10^3/uL Sodium 136 (135-145) mmol/L Potassium 3.6 (3.5-5.1) mmol/L Chloride 110 H (98-107) mmol/L Carbon Dioxide 19 L (22-30) mmol/L Anion Gap 10.6 (5-15) MEQ/L BUN 17 (9-20) mg/dL Creatinine 1.03 (0.66-1.25) mg/dL Estimated GFR 77.7 ML/MIN Glucose 185 H (74-106) mg/dL POC Glucometer 181 H (74 to 106) mg/dL Calcium 7.7 L (8.4-10.2) mg/dL Magnesium 1.7 (1.6-2.3) mg/dL Total Bilirubin 0.30 (0.2-1.3) mg/dL AST 24 (17-59) U/L ALT 20 (0-50) U/L Alkaline Phosphatase 96 (38-126) U/L Serum Total Protein 5.5 L (6.3-8.2) g/dL Albumin 2.7 L (3.5-5.0) g/dL C. difficile Screen (NEGATIVE) C.difficile 027-NAP1-B1 (NEGATIVE) 11/24/23 Range/Units 11:15 WBC (4.23-9.07) x10^3/uL RBC (4.63-6.08) x10^6/uL Hgb (13.7-17.5) g/dL Hct (40.1-51.0) % MCV (79.0-92.2) fL MCH (25.7-32.2) pg MCHC (32.3-36.5) g/dL RDW (11.6-14.4) % Plt Count (163-337) x10^3/uL MPV (9.4-12.4) fL Gran % (34.0-67.9) % Immature Gran % (Auto) (0.001-0.429) % Nucleat RBC Rel Count (0.00-0.2) % Eos # (Auto) (0.04-0.54) x10^3/uL Immature Gran # (Auto) (0.001-0.031) x10^3u/L Absolute Lymphs (auto) (1.32-3.57) x10^3/uL Absolute Monos (auto) (0.30-0.82) x10^3/uL Absolute Nucleated RBC (0.00-0.012) x10^3u/L Lymphocytes % (21.8-53.1) % Monocytes % (5.3-12.2) % Eosinophils % (0.8-7.0) % Basophils % (0.2-1.2) % Absolute Granulocytes (1.78-5.38) x10^3/uL Basophils # (0.01-0.08) x10^3/uL Sodium (135-145) mmol/L Potassium (3.5-5.1) mmol/L Chloride (98-107) mmol/L Carbon Dioxide (22-30) mmol/L Anion Gap (5-15) MEQ/L BUN (9-20) mg/dL Creatinine (0.66-1.25) mg/dL Estimated GFR ML/MIN Glucose (74-106) mg/dL POC Glucometer 220 H (74 to 106) mg/dL Calcium (8.4-10.2) mg/dL Magnesium (1.6-2.3) mg/dL Total Bilirubin (0.2-1.3) mg/dL AST (17-59) U/L ALT (0-50) U/L Alkaline Phosphatase (38-126) U/L Serum Total Protein (6.3-8.2) g/dL Albumin (3.5-5.0) g/dL C. difficile Screen (NEGATIVE) C.difficile 027-NAP1-B1 (NEGATIVE) Multi-Disciplinary Progress Notes: Multi-Disciplinary Progress Notes 11/24/23 09:03 Case Management Note by Thu Sparrow S/W PATIENT AND HE IS AWARE HE IS GOING TO [facility] TODAY AND STATES IS "READY". SPOKE WITH DR HOPE OFFICE TO OBTAIN WOUND CARE ORDERS AND WAS INFORMED THAT HE WILL SEND ORDERS DIRECTLY TO THE [facility]. Initialized on 11/24/23 09:03 - END OF NOTE 11/23/23 16:52 Physical Therapy Note by Joshua(L#[id number])[place] PT. WAS SEEN BY P.T. THIS A.M. REPORTS HE IS FEELING BETTER. AGREEABLE TO P.T. IN BEDSIDE RECLINER UPON P.T. ARRIVAL TO ROOM. PERFORMED SIT TO STAND W/ MIN-MOD ASSIST X 1. V.C. GIVEN TO SCOOT TO EDGE OF CHAIR AND INCREASE TRUNK FLEXION NH IOR TO SITTING. PT. AMBULATED ~ 40' W/ SBQC AND CGA-MIN ASSIST. NOTED DECREASED STRIDE LENGTH AND HEEL STRIKE L LE D/T FUSED ANKLE JOINT D/T CHRONIC HEMIPLEGIA D/T CP. PT. TO D/C TO SNF TO CONT. REHAB WHEN STABLE. Initialized on 11/23/23 16:52 - END OF NOTE 11/23/23 14:11 Case Management Note by Bonny [facility] HAS ACCEPTED- THEY CAN NOT DO THE IRON INFUSIONS IN THEIR FACILITY BUT COULD PROVIDE TRANSPORT IF THESE NEED TO BE DONE OTPT Initialized on 11/23/23 14:11 - END OF NOTE Assessment/Plan (1) Venous insufficiency (chronic) (peripheral) Current Visit: Yes Status: Acute Assessment & Plan: Ultrasound obtained bilateral lower extremity: right popliteal fossa demonstrating non occluding thrombus, left lower extremity with no indication of occlusion Compression dressings applied to the bilateral lower extremity. Changes to the right lower extremity consistent with hyperkeratotic and exfoliative changes secondary to venous insufficiency with some baseline lyphedema Patient already fitted for lymphedema pumps Improving as anticipated at this time. D/c today to [facility] Follow up within 1 week outpatient. (2) Cellulitis Current Visit: Yes Status: Acute Code(s): L03.90 - CELLULITIS, UNSPECIFIED (3) Cellulitis of left lower extremity Current Visit: Yes Status: Acute Code(s): L03.116 - CELLULITIS OF LEFT LOWER LIMB (4) Sepsis Current Visit: Yes Status: Resolved (5) Type 2 diabetes mellitus with ketoacidosis without coma Current Visit: Yes Status: Acute Code(s): E11.10 - TYPE 2 DIABETES MELLITUS WITH KETOACIDOSIS WITHOUT COMA
== END 2023-11-24 13:55 | DRG 871 ==
LOC: ED 14:28 → MED SURG 19:54 → OBSVTOIN 11-21 09:54
PROVIDERS: ADMIT Internal Medicine Nephrology; ATTEND Internal Medicine Nephrology
DX: A41.9 Sepsis, unspecified organism (principal); E11.10 Type 2 diabetes mellitus with ketoacidosis without coma; L03.116 Cellulitis of left lower limb; N17.9 Acute kidney failure, unspecified; I82.431 Acute embolism and thrombosis of right popliteal vein; G80.9 Cerebral palsy, unspecified; R42 Dizziness and giddiness; E87.6 Hypokalemia; E83.42 Hypomagnesemia; R33.9 Retention of urine, unspecified; I25.2 Old myocardial infarction; I10 Essential (primary) hypertension; R50.9 Fever, unspecified; S91.101A Unspecified open wound of right great toe without damage to nail, initial encounter; D64.9 Anemia, unspecified; D72.829 Elevated white blood cell count, unspecified; Z79.899 Other long term (current) drug therapy; Z95.0 Presence of cardiac pacemaker
CPT/HCPCS: 0241U; 29580; 36415; 71045; 73630; 80053; 80202; 81001; 82607; 82728; 82746; 82947; 83036; 83540; 83550; 83605; 83735; 83880; 84132; 84145; 85025; 85652; 86140; 87040; 87070; 87077; 87086; 87186; 87493; 87651; 93306; 93970; 94760; 96360; 96361; 96365; 96367; 97161; 97530; 99223; 99285; G0328; G0378; Q3014; 82274; 99232; J0696; J1650; J1756; J1817; J3475; J3480; A9270-GY; J3370

== ENCOUNTER 2024-04-19 12:05 | Emergency (ER) | payer MEDICARE ==
--- NOTE | 2024-04-19 12:08 | ERPHSYRPT ---
- History of Present Illness Time Seen by Provider: 04/19/24 12:07 Source: patient, EMS, old records Exam Limitations: no limitations Physician History: This is a 73-year-old white male patient brought to the emergency department by the paramedics secondary to fall in a parking lot hitting his head and neck. The paramedics brought him into the emergency department with a cervical collar in place. Apparently, he was getting ready to put groceries/shopping items into his car when the grocery cart took off and rolled away on its own and he quickly moved to try to grab it. The patient has cervical palsy and he lost his balance. He did not lose consciousness. He denies chest pain. He denies shortness of breath. He denies abdominal pain. He has no complaints or evidence of extremity pain or injury. Patient has a history of hyperlipidemia, diabetes, arthritis, prostate issues, peripheral neuropathy, seizure disorder, coronary artery disease (stents, CABG), cerebral palsy and gastroesophageal reflux disease. Patient is on anticoagulation therapy and he does not recall if it is Eliquis or generic Plavix. Occurred: just prior to arrival Reason for Fall: lost balance, tripped, fell from height Injuries/Pain Location: head, neck Loss of Consciousness: no loss of consciousness Quality: aching Severity of Pain-Max: mild Severity of Pain-Current: mild Modifying Factors: Improves With: nothing Associated Symptoms (Fall): headache, neck pain, No abdominal pain, No back pain, No extremity injury, No seizures, No shortness of breath, No vision changes Allergies/Adverse Reactions: No Known Allergies Allergy (Mild, Verified 04/19/24 12:08) Home Medications: Atorvastatin Calcium 1 tab PO HS 11/20/23 [History] Buspirone HCl 15 mg PO TID 11/20/23 [History] Clopidogrel Bisulfate [Clopidogrel] 75 mg PO DAILY 11/20/23 [History] Cyanocobalamin (Vitamin B-12) [B-12] 1 tab PO DAILY 11/20/23 [History] Folic Acid 400 mcg PO DAILY 11/20/23 [History] Furosemide 40 mg [Lasix 40 MG] 40 mg PO DAILY 11/20/23 [History] Gabapentin [Neurontin ] 1 tab PO TID 11/20/23 [History] Isosorbide Mononitrate 30 mg [Imdur 30 MG] 1 tab PO DAILY 11/20/23 [History] Levothyroxine Sodium 50 Mcg [Synthroid 50 Mcg] 1 tab PO DAILY 11/20/23 [History] Metformin HCl [Metformin HCl ER] 750 mg PO BID 11/20/23 [History] Nitroglycerin 0.4 mg (Ed) [Nitrostat 0.4 MG (ED)] 1 tab SL Q5MIN PRN MR X 3 PRN 11/20/23 [History] Oxycodone HCl 5 mg Ir [Oxy-IR 5 MG] 5 mg PO Q4H PRN PRN 11/20/23 [History] Phenytoin Sodium Extended 200 mg PO BID 11/20/23 [History] Ramipril 1.25 mg [Altace 1.25 MG] 1 tab PO DAILY 11/20/23 [History] carvediloL [Carvedilol] 6.25 mg PO BID 11/20/23 [History] Hx Tetanus, Diphtheria Vaccination/Date Given: No Hx Influenza Vaccination/Date Given: Yes (2013) Hx Pneumococcal Vaccination/Date Given: Yes Travel Risk - International Travel Have you traveled outside of the country in past 3 weeks: No - Emerging Infectious Disease Are you exhibiting symptoms associated with any current EIDs: No - Review of Systems Constitutional: No Symptoms Eyes: No Symptoms Ears, Nose, & Throat: No Symptoms Respiratory: No Symptoms Cardiac: No Symptoms Abdominal/Gastrointestinal: No Symptoms Genitourinary Symptoms: No Symptoms Musculoskeletal: Neck Pain, Fall, No Back Pain, No Deformity Skin: No Symptoms Neurological: Headache Psychological: No Symptoms Endocrine: No Symptoms Hematologic/Lymphatic: No Symptoms Immunological/Allergic: No Symptoms All Other Systems: Reviewed and Negative - Past Medical History Pertinent Past Medical History: Yes Neurological History: Peripheral Neuropathy, Seizures, Other ENT History: Glaucoma Cardiac History: Myocardial Infarction ([place]) Respiratory History: No Pertinent History Endocrine Medical History: Diabetes Type II Musculoskeletal History: Arthritis GI Medical History: GERD History: No Pertinent History Psycho-Social History: No Pertinent History Male Reproductive Disorders: No Pertinent History Other Medical History: CERBRAL PALSY - Past Surgical History Past Surgical History: Yes Neuro Surgical History: No Pertinent History Cardiac: CABG, Cardiac Stent Respiratory: No Pertinent History Gastrointestinal: Appendectomy Genitourinary: No Pertinent History Musculoskeletal: No Pertinent History Male Surgical History: No Pertinent History Other Surgical History: SKIN GRAPHS - Social History Smoking Status: Never smoker Exposure to second hand smoke: Yes Drug Use: none Patient Lives Alone: No - Social Determinants of Health Will the patient participate in the screening: Declined to provide - Nursing Vital Signs Nursing Vital Signs: Initial Vital Signs Temperature 97.7 F 04/19/24 12:10 Pulse Rate 72 04/19/24 12:10 Respiratory Rate 15 04/19/24 12:10 Blood Pressure 107/61 04/19/24 12:10 O2 Sat by Pulse Oximetry 100 04/19/24 12:10 Pain Scale Pain Intensity 5 - Jose Alfredo Coma Score Best Eye Response (Jose Alfredo): (4) open spontaneously Best Verbal Response (Jose Alfredo): (5) oriented Best Motor Response (Jose Alfredo): (6) obeys commands Jose Alfredo Total: 15 - Physical Exam General Appearance: no apparent distress, alert, anxiety Head Injury: no evidence of injury Eye Exam: PERRL/EOMI, eyes nml inspection ENT Exam: airway nml, nml ext.inspection Neck Exam: trachea midline, c-collar in place Respiratory/Chest Exam: normal breath sounds, No chest tenderness, No respiratory distress, No ecchymosis, No crepitus Cardiovascular Exam: normal heart sounds, regular rate/rhythm Gastrointestinal Exam: soft, normal bowel sounds, No tenderness Rectal Exam: not done Back Exam: normal inspection, No vertebral tenderness Extremity Exam: normal inspection, normal range of motion, pelvis stable, No deformities Neurologic Exam: alert, oriented x 3, cooperative, 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, normal mood/affect, sensation nml Skin Exam: normal color, warm, dry SpO2 Interpretation: normal O2 Delivery: Room Air - Course Nursing assessment & vital signs reviewed: Yes Ordered Tests: Active Orders 24 hr Category Date Time Status CERVICAL SPINE WO CONTRAST [CT] Stat Exams 04/19/24 12:15 Completed HEAD WITHOUT CONTRAST [CT] Stat Exams 04/19/24 12:15 Completed - Progress Progress: unchanged Progress Note: 04/19/24 12:20 My medical decision making and the assignment of low to moderate complexity is based on review of the patient's past medical history, review the patient's medication list, reviewed patient drug allergy list, history present illness and physical findings on examination. The workup in this patient includes CT scan of the head and CT scan of the cervical spine without contrast. Differential diagnosis includes but is not limited to cervical strain, cervical spine fracture/subluxation, acute intracranial abnormality, skull fracture 04/19/24 13:[address] scans were performed without contrast and were interpreted by the radiologist. I reviewed the impressions. The impressions are as follows: CT scan of the cervical spine shows multilevel degenerative changes. There is Biber lateral carotid calcifications. No acute findings. CT scan of the head demonstrates old right parietal infarct. No acute abnormali ties. No fractures Counseled pt/family regarding: diagnosis, need for follow-up, rad results Medical Desision Making - Independent Historian Additional History obtained from: Leakage Tester/EMT - Diagnostic Testing Diagnostic test were ordered, analyzed, and reviewed by me: Yes Radiological Interpretation: Reviewed by me, Teleradiologist Report - Risk of complications Low Risk: Low risk of morbidity from additional dx testing or treatment - Departure Departure Disposition: Home Clinical Impression: Fall with no significant injury Condition: Stable Critical Care Time: No Referrals: OZ ARREDONDO MD [Primary Care Provider] - Follow up/PCP as directed Additional Instructions: Ice pack to tender areas 3-4 times a day for the next 3 to 4 days. Add Tylenol for pain control. Call your primary care provider today, 04/19/2024, to make arrangements for follow-up appointment for further evaluation management.
[2024-04-19 12:16] VITALS: TEMP 97.7
--- NOTE | 2024-04-19 13:28 | XRAY ---
Indication: Status post fall. Multiple contiguous axial images obtained through the head without contrast. 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 No acute intracranial hemorrhage, hydrocephalus, or mass effect. Fourth ventricle is midline. Bony calvarium intact. Partial opacification right mastoid air cells presumed inflammatory. Paranasal sinuses are clear. Impression: Old right parietal infarct. No acute intracranial abnormalities/fracture. Partial opacification right mastoid air cells presumed inflammatory.
--- NOTE | 2024-04-19 13:30 | XRAY ---
Indication: Status post fall. Multiple contiguous axial images obtained through the cervical spine. Sagittal and coronal reformatted images obtained. Comparison: None Osseous structures demineralized. Axial images negative for acute fracture, suspicious bony lesions, or spinal canal stenosis. Mild multilevel anterior and posterior endplate osteophytes and mild bilateral degenerative facet hypertrophy. Sagittal and coronal reformatted images demonstrates normal alignment with vertebral body heights/disc spaces maintained. No acute compression fracture or jumped facet. Normal appearing craniocervical junction. Visualized noncontrasted soft tissues demonstrates mild bilateral carotid calcifications. Lung apices are clear. Impression: Osteopenia, multilevel degenerative spondylosis, and bilateral carotid calcifications. No acute findings.
[2024-04-19 13:44] VITALS: BP 114/58; PULSE 67; RESP 18; O2SAT 100
== END 2024-04-19 14:04 | disposition home or self-care (01) ==
LOC: ED 12:05
DX: M54.2 Cervicalgia (principal); R51.9 Headache, unspecified; G80.9 Cerebral palsy, unspecified; Z79.01 Long term (current) use of anticoagulants; W01.0XXA Fall on same level from slipping, tripping and stumbling without subsequent striking against object, initial encounter; Z79.899 Other long term (current) drug therapy
CPT/HCPCS: 70450; 72125; 99283; 99284

== ENCOUNTER 2024-11-22 10:22 | Day surgery (SDC) | payer MEDICARE, OTHER ==
[~2024-11-22 10:22] MED LIST: CEFAZOLIN SODIUM ONE; Lactated Ringers 1,000 ML IV ONE
[2024-11-22] MEDS: Lactated Ringers 1,000 ML IV SCH (10:37)
[2024-11-22 10:56] VITALS: RESP 18
[2024-11-22 11:04] LABS: Hematocrit 28.1 % (40.1-51.0); Hemoglobin 9.7 g/dL (13.7-17.5); Mean Corpuscular Hemoglobin 30.6 pg (25.7-32.2); Mean Corpuscular Hgb Concent. 34.5 g/dL (32.3-36.5); Platelet Count 195 x10^3/uL (163-337); Red Blood Count 3.17 x10^6/uL (4.63-6.08); White Blood Count 5.5 x10^3/uL (4.23-9.07)
[2024-11-22 11:15] LABS: Calcium 9.2 mg/dL (8.4-10.2); Carbon Dioxide 30.0 mmol/L (22-30); Creatinine 1 0.93 mg/dL (0.66-1.25); EST GLOMERULAR FILTRATION RATE 87.2 ML/MIN; Glucose 126.0 mg/dL (74-106); Potassium 4.4 mmol/L (3.5-5.1); SGOT/AST 19.0 U/L (17-59); SGPT/ALT 13.0 U/L (0-50); Total Protein 6.6 g/dL (6.3-8.2)
[2024-11-22] MEDS ORDERED: Marcaine Mpf 0.5% Vial 30 Ml ONE (12:27)
[2024-11-22] MEDS ORDERED: Xylocaine 1% Vial 30 ML PF IJ ONE (12:27)
[2024-11-22] MEDS ORDERED: GARAMYCIN INJ ONE (12:34)
[2024-11-22] MEDS ORDERED: propofoL IV ONE (14:01)
[2024-11-22] MEDS ORDERED: Versed 2 MG/2 ML Injection ONE (14:02)
[2024-11-22] MEDS ORDERED: SUBLIMAZE 100 MCG/2 ML ONE (14:02)
[2024-11-22] MEDS ORDERED: Ephedrine Sulfate 50 MG/ML ONE (14:21)
--- NOTE | 2024-11-22 14:58 | XRAY ---
Indication: Left 4th metatarsal/toe amputation. Intraoperative fluoroscopy provided for 5 seconds. 3 digital spot images submitted for interpretation demonstrates amputation entire 4th toe and mid to distal 4th metatarsal. Correlate with intraoperative findings/report.
[2024-11-22 15:24] VITALS: PULSE 68; TEMP 96.1; O2SAT 100
[2024-11-22 15:42] VITALS: BP 131/66
--- NOTE | 2024-11-23 15:31 | XRAY ---
5 seconds of fluoroscopy used in surgery for a left 4th metatarsal/toe amputation.
--- NOTE | 2024-11-26 09:05 | OP ---
SURGERY DATE/TIME: 11/22/2024 1319-1201 PREOPERATIVE DIAGNOSES: 1) Osteomyelitis. 2) Left foot diabetic foot wounds. 3) Cerebral palsy. 4) Diabetic peripheral neuropathy. 5) Failure of intravenous antibiotics. POSTOPERATIVE DIAGNOSES: 1) Osteomyelitis. 2) Left foot diabetic foot wounds. 3) Cerebral palsy. 4) Diabetic peripheral neuropathy. 5) Failure of intravenous antibiotics. PROCEDURES: 1) Amputation of fourth toe and partial fourth metatarsal. 2) Placement of gentamicin-impregnated antibiotic beads. 3) Application of negative pressure wound VAC therapy. SURGEON: Timi Nguyen DPM COLLECTIONS ASSISTANT: MAYCOL Rogel, and JOIE Gray ANESTHESIA: Monitored anesthesia care with a preoperative local block consisting of 10 mL of a 1:1 mixture of 1% lidocaine plain and 0.5% bupivacaine plain injected in a mini-Azar block type fashion. HEMOSTASIS: Pressure dressing. INJECTABLES: 10 mL of 1:1 mixture of 1% lidocaine plain and 0.5% bupivacaine plain. INDICATIONS: The patient is a very pleasant 74-year-old male very well known to our service for wounds secondary to his neuropathy and venous insufficiency. In this specific encounter, patient did have an acute episode of osteomyelitis to the fifth metatarsal head. There was a resection that took place with further worsening infection that led to 2 encounters in the OR. From that standpoint, patient has seemingly resolved the soft tissue infection; however, with management, we have taken serial x-rays and noticed some significant changes to the fourth digit as well as erosions at the lateral aspect of the fourth metatarsal head. At this time, we discussed all risks and complications regarding treating this with IV antibiotics versus surgical excision. In the setting of acute osteomyelitis and in the setting of an open wound with contiguous spread to the next bone, I generally recommended aggressive treatment to prevent this from turning into a chronic or seeding to the remainder of the foot. From that standpoint, discussion was held in regard to options. All risks, complications, and benefits of surgical intervention at this time were discussed including, but not limited to, infection, hematoma, seroma, possibility of delayed wound healing, non-wound healing, and possible need for further surgical intervention at a later date. No guarantees were provided as to the outcome of surgical intervention. Plenty of time was allowed for the patient to ask questions, which were answered to his apparent satisfaction. It is at this time we decided to proceed. Patient given the wound VAC therapy, will be initiated, has been consulted in regard to adequate protein intake as well as nutritional factors to improve his healing and has failed these in previous episodes. Therefore, I do feel that the wound VAC is a necessity medically in order to proceed with achieving wound healing from that standpoint. DESCRIPTION OF PROCEDURE AND FINDINGS: Patient was brought into the operating room and placed on the operating room table in the supine position. At this time, monitored anesthesia care was administered until the patient was adequately sedated. Once the patient was sedated, the left lower extremity was prepped and draped in the typical sterile fashion and lowered onto the surgical field. Attention was directed to the left foot where the previous surgical site was coapting. This incision was running the lateral aspect of the left foot. This did not have to be deepened except for 2 cm just proximal to the fourth digit. Disarticulation of the fourth digit took place utilizing a 15 blade, taking off the digit, and then utilizing an 18 mm sagittal saw. The metatarsal was resected approximately one-third of the length of the metatarsal head, neck, and into the diaphysis. From that standpoint, 1000 mL Bactisure was then utilized to flush the surgical site and then 1000 mL of sterile saline. Following this, 1 g of gentamicin was placed within antibiotic beads and placed into the deficit. From that standpoint, a negative-pressure wound VAC therapy system was then applied to the patient's left lower extremity until negative pressure read 125 mmHg with no appreciated leaks. From that standpoint, a multi-layered compression dressing was then placed on the patient's left lower extremity. The patient was then reversed from anesthesia and returned to the postoperative anesthesia care unit with vital signs stable and vascular status intact. The patient handled the anesthesia as well as the procedure without significant complication. Postoperative orders as indicated in the patient's discharge chart.
== END 2024-11-22 15:42 | disposition home or self-care (01) ==
LOC: SDC 10:22
PROVIDERS: ATTEND Podiatrist Foot & Ankle Surgery
DX: M86.9 Osteomyelitis, unspecified (principal); E11.621 Type 2 diabetes mellitus with foot ulcer; G80.9 Cerebral palsy, unspecified; E11.42 Type 2 diabetes mellitus with diabetic polyneuropathy; Z16.24 Resistance to multiple antibiotics
CPT/HCPCS: 11981; 28810; 36415; 73630; 76000; 80053; 85027; 97605; A6260; C1602